=== PATIENT | female | born 1945 | race Hispanic/Latino ===

== ENCOUNTER 2017-08-11 10:12 | Outpatient (CLI) | payer MEDICARE ==
--- NOTE | 2017-08-12 13:23 | Vascular Lab Report ---
RENAL ARTERY DUPLEX EXAM: REASON FOR EXAM: Chronic renal failure. NOTE: Visualization is technically adequate. COMMENTS ON THE AORTA: The aorta is patent. Normal flow velocities are observed. No aneurysmal dilatation is noted. Mild atherosclerotic change is identified. The celiac artery is patent with normal flow velocity. The superior mesenteric artery is patent with normal flow velocity. COMMENTS ON THE RIGHT KIDNEY: The kidney measures 7.6 centimeters in greatest dimension. Kidney appears to be small and atretic The renal artery is patent. Maximum systolic velocity is 53 cm/sec. This finding is consistent with less than 60% diameter reduction. Renal aortic index is is not calculated due to low renal velocity. This is consistent with intrinsic parenchymal disease of the right kidney Overall findings are consistent with less than 60% diameter reduction in the renal artery. COMMENTS ON THE LEFT KIDNEY: The kidney measures 10.2 centimeters in greatest dimension. No no significant intraparenchymal abnormalities noted The renal artery is patent. Maximum systolic velocity is 92 cm/sec. This finding is consistent with less than 60% diameter reduction. Renal aortic index is one. This finding is consistent with less than 60% diameter reduction. Overall findings are consistent with less than 60% diameter reduction in the renal artery. IMPRESSION: RIGHT KIDNEY: Less than 60% diameter reduction in the renal artery. Significant intraparenchymal disease of the right kidney LEFT KIDNEY: Less than 60% diameter reduction in the renal artery.
== END 2017-08-11 10:13 | disposition home or self-care (01) ==
LOC: VAS 10:12
PROVIDERS: ATTEND Internal Medicine Nephrology
DX: N18.3 Chronic kidney disease, stage 3 (moderate) (principal)
CPT/HCPCS: 93975

== ENCOUNTER 2018-10-11 09:02 | Outpatient (CLI) | payer MEDICARE ==
--- NOTE | 2018-10-11 13:02 | Vascular Lab Report ---
FINAL REPORT EXAM: VL RENAL VASCULATURE HISTORY: KIDNEY DISEASE TECHNIQUE: Grayscale and color and spectral Doppler ultrasound imaging of the kidneys and abdominal aorta was performed. PRIORS: None. FINDINGS: The abdominal aorta is normal in caliber. Normal waveforms were seen throughout the abdominal aorta. Peak systolic velocity in cm/sec of the proximal abdominal aorta is 75, mid abdominal aorta is 84 and distal abdominal aorta is 77. The common iliac arteries are normal in caliber. Peak systolic velocit y of the right common iliac artery is 93.5 centimeters/second. Peak systolic velocity of the left com mon iliac artery is 105.6 centimeters/second. Normal waveforms were seen. Peak systolic velocity of t he celiac axis is 110.9 centimeters/second with normal waveforms. Peak systolic velocity of the proxi mal SMA is 99.8 centimeters/second with normal waveforms. Normal waveforms were seen throughout the renal arteries. Peak systolic velocity of the proximal left renal artery is 105.0 centimeters/second. Peak systolic velocity of the right proximal renal artery is 80 centimeters/second. Peak systolic velocity of the mid left renal artery is 96.2 centimeters/sec ond. The right mid renal artery was not well seen. Peak systolic velocity of the distal left renal ar linda is 122.0 centimeters/second. Peak systolic velocity of the right distal renal artery is 57 centi meters/second. The right renal to aortic ratio is 0.95. The left renal to aortic ratio is 1.45. The kidneys are diffusely increased in echogenicity with loss of the corticomedullary differentiation . No hydronephrosis is seen on either side. No renal cysts, masses or calcifications are seen. The ri ght kidney measures 6.2 centimeters in length. The left kidney measures 11.2 centimeters in length. IMPRESSION: 1. No evidence of renal artery stenosis. Note that the mid right renal artery was not visualized. 2. Echogenic kidneys can be seen in medical renal disease. Atrophic right kidney.
== END 2018-10-11 09:03 | disposition home or self-care (01) ==
LOC: VAS 09:02
PROVIDERS: ATTEND Internal Medicine Nephrology
DX: N18.3 Chronic kidney disease, stage 3 (moderate) (principal); N26.1 Atrophy of kidney (terminal)
CPT/HCPCS: 93975

== ENCOUNTER 2019-01-18 09:01 | Outpatient (CLI) | payer MEDICARE ==
--- NOTE | 2019-01-18 14:19 | Vascular Lab Report ---
PROCEDURE: VL RENAL VASCULATURE TECHNIQUE: Renal artery arterial duplex Doppler. Grayscale, color flow and spectral waveform images were obtained. HISTORY: ATHEROSCLEROSIS OF RENAL ARTERY, RENAL ARTERY DUPLEX COMPARISON: 10/11/2018 FINDINGS: There is no abdominal aortic aneurysm. Aortic flow velocities are up to 107 cm/s. There is no flow velocity elevation in the left renal artery. The left renal aortic ratio is normal, 1.0. Left intrarenal resistive index is mildly elevated at 0.77. Correlate with renal function. Left renal vein is patent. Right renal artery is not visualized. Left renal vein is patent. The right kidney is small measuring 6.6 cm length. There is patency and normal flow velocities in the celiac trunk and SMA. There is no abnormal mass or fluid collection seen. IMPRESSION: There is no evidence of left renal artery stenosis. Right renal artery is not visualized. There is pr ominent right renal atrophy as seen previously. This document is electronically signed by Anjali Chinchilla MD., Jan 18 2019 02:17:28 PM ET
== END 2019-01-18 09:02 | disposition home or self-care (01) ==
LOC: VAS 09:01
PROVIDERS: ATTEND Internal Medicine Nephrology
DX: I70.1 Atherosclerosis of renal artery (principal); N18.3 Chronic kidney disease, stage 3 (moderate)
CPT/HCPCS: 93975

== ENCOUNTER 2021-01-10 11:03 | Inpatient (IN) | payer MEDICARE ==
--- NOTE | 2021-01-10 11:10 | Emergency Department Report ---
Blank Doc - Documentation Documentation: 75-year-old female that was sent by Dr. Daniels (urologist) for possible hydronephro sis with kidney stone obstruction for possible procedure. 1- This initial assessment/diagnostic orders/clinical plan/ treatment(s) is/are subject to change based on pt's health status, clinical progression and re- assessment by fellow clinical providers in the ED. Further treatment and workup at subsequent clinical provers discretion. Patient/guardians urged not to elope from ED as their condition may be serious if not clinically assessed and managed. 2-lab 3-UA
[2021-01-10 11:40] LABS: Basophils # (Auto) 0.2 K/mm3 (0.0-0.1); Basophils % (Auto) 1.1 % (0.0-1.8); Eosinophils % (Auto) 0.2 % (0.0-4.3); Hematocrit 34.1 % (30.3-42.9); Hemoglobin 10.8 gm/dl (10.1-14.3); Lymphocytes # (Auto) 3.1 K/mm3 (1.2-5.4); Lymphocytes % (Auto) 16.9 % (13.4-35.0); Mean Corpuscular HGB Conc 32 % (30-34); Mean Corpuscular Volume 90 fl (79-97); Monocytes # (Auto) 0.9 K/mm3 (0.0-0.8); Monocytes % (Auto) 4.9 % (0.0-7.3); Platelet Count 414 K/mm3 (140-440); Red Blood Count 3.79 M/mm3 (3.65-5.03); Red Cell Distribution Width 13.2 % (13.2-15.2)
[2021-01-10 11:46] LABS: INR 1.2 (0.87-1.13)
[2021-01-10 11:47] LABS: Partial Thromboplastin Time 30.5 Sec. (24.2-36.6)
[2021-01-10] MEDS ORDERED: SODIUM CHLORIDE 0.9% 1000 ML 1,000 ML IV ONE (11:56)
[2021-01-10 11:58] LABS: Albumin 3.5 g/dL (3.9-5); Blood Urea Nitrogen 87 mg/dL (7-17); Calcium 8.7 mg/dL (8.4-10.2); Hemolysis Index 0
--- NOTE | 2021-01-10 12:02 | Emergency Department Report ---
ED General Adult HPI - General Chief complaint: Urogenital-Female Stated complaint: BLOCKED KIDNEY Time Seen by Provider: 01/10/21 11:04 Source: patient Mode of arrival: Ambulatory Limitations: No Limitations - History of Present Illness Initial comments: This is a 75-year-old female who is somewhat vague about her medical history. She was sent by her urologist for evaluation are he decreased urine output I understand. I am also thinking that she may have been told that if she has a kidney stone/hydronephrosis that she may need a stent. She tells me that she has had an ultrasound in the office that did show a kidney stone. She thinks it was on the left but does not know the size. She was sent by her urologist who will be called for further information. He requested that she get a CT of her abdomen and pelvis for further work-up. Patient denies that she has back pain or hematuria at this time. She does not refer any recent fever or symptoms beyond the decreased urine output. She states that she has one nonfunctional kidney and the other kidney is at the The patient's last study here was a renal ultrasound in 2019. It looks like she had several in the past as well. The last study showed no evidence of kidney stone nor renal artery stenosis. -: Gradual Associated Symptoms: denies other symptoms (Decreased urine output as above) - Related Data Allergies Allergy/AdvReac Type Severity Reaction Status Date / Time Penicillins Allergy Anaphylaxis Verified 01/10/21 11:04 Sulfa (Sulfonamide Allergy Anaphylaxis Verified 01/10/21 11:04 Antibiotics) ED Review of Systems ROS: Stated complaint: BLOCKED KIDNEY Other details as noted in HPI Constitutional: denies: chills, fever Eyes: denies: eye pain, vision change ENT: denies: ear pain, throat pain Respiratory: denies: cough, shortness of breath Cardiovascular: denies: chest pain, palpitations Endocrine: no symptoms reported Gastrointestinal: denies: abdominal pain, nausea, diarrhea Genitourinary: as per HPI. denies: urgency, dysuria Musculoskeletal: denies: back pain, arthralgia Skin: denies: rash, lesions Neurological: denies: headache, weakness, paresthesias Psychiatric: denies: anxiety, depression Hematological/Lymphatic: denies: easy bleeding, easy bruising ED Past Medical Hx - Past Medical History Hx Diabetes: Yes Additional medical history: 1 KIDNEY - KIDNEY DISEASE/ MITRAL VALVE / BUNDLE BLOCK - Surgical History Additional Surgical History: KIDNEY STONE/ HYSTO - Social History Smoking Status: Never Smoker Substance Use Type: None ED Physical Exam - General Limitations: No Limitations General appearance: alert, in no apparent distress - Head Head exam: Present: atraumatic, normocephalic - Eye Eye exam: Present: normal appearance. Absent: scleral icterus - ENT ENT exam: Present: mucous membranes moist - Neck Neck exam: Present: normal inspection - Respiratory Respiratory exam: Present: normal lung sounds bilaterally. Absent: respiratory distress - Cardiovascular Cardiovascular Exam: Present: regular rate, normal rhythm. Absent: systolic murmur, diastolic murmur, rubs, gallop - GI/Abdominal GI/Abdominal exam: Present: soft, normal bowel sounds. Absent: distended, tenderness, guarding, rebound - Extremities Exam Extremities exam: Present: normal inspection - Back Exam Back exam: Present: normal inspection - Neurological Exam Neurological exam: Present: alert, oriented X3, CN II-XII intact. Absent: motor sensory deficit - Psychiatric Psychiatric exam: Present: normal affect, normal mood - Skin Skin exam: Present: warm, dry, intact, normal color. Absent: rash ED Course Vital Signs 01/10/21 11:11 Temperature 97.5 F L Pulse Rate 63 Respiratory 18 Rate Blood Pressure 136/52 O2 Sat by Pulse 97 Oximetry - Reevaluation(s) Reevaluation #1: Patient stated that she had an uncomplicated rash associated with penicillin in the distant past. I think the patient's drug of choice should be ceftriaxone. We will monitor her closely. The risk of significant cross-reactivity would be exceedingly small in this setting. 01/10/21 12:46 Reevaluation #2: Patient has been seen by her urologist, Dr. Daniels. He states the patient needs a percutaneous nephrostomy tube. He states he called Dr. Bray but has not yet discussed. I have consulted Dr. Bray. 01/10/21 12:53 ED Medical Decision Making - Lab Data Result diagrams: 01/10/21 11:09 01/10/21 11:20 Laboratory Results - last 24 hr 01/10/21 01/10/21 01/10/21 11:09 11:20 11:25 WBC 18.4 H RBC 3.79 Hgb 10.8 Hct 34.1 MCV 90 MCH 29 MCHC 32 RDW 13.2 Plt Count 414 Lymph % (Auto) 16.9 [place] % (Auto) 4.9 Eos % (Auto) 0.2 Baso % (Auto) 1.1 Lymph # (Auto) 3.1 [place] # (Auto) 0.9 H Eos # (Auto) 0.0 Baso # (Auto) 0.2 H Seg Neutrophils % 76.9 H Seg Neutrophils # 14.1 H PT 15.0 H INR 1.20 H APTT 30.5 Sodium 132 L Potassium 4.2 Chloride 91.7 L Carbon Dioxide 16 L Anion Gap 29 BUN 87 H Glucose 162 H Calcium 8.7 Total Bilirubin 0.50 AST 12 Alkaline Phosphatase 130 H Total Protein 7.4 Albumin 3.5 L Albumin/Globulin Ratio 0.9 Laboratory Results - last 24 hr 01/10/21 01/10/21 01/10/21 11:09 11:20 11:25 WBC 18.4 H RBC 3.79 Hgb 10.8 Hct 34.1 MCV 90 MCH 29 MCHC 32 RDW 13.2 Plt Count 414 Lymph % (Auto) 16.9 [place] % (Auto) 4.9 Eos % (Auto) 0.2 Baso % (Auto) 1.1 Lymph # (Auto) 3.1 [place] # (Auto) 0.9 H Eos # (Auto) 0.0 Baso # (Auto) 0.2 H Seg Neutrophils % 76.9 H Seg Neutrophils # 14.1 H PT 15.0 H INR 1.20 H APTT 30.5 Sodium 132 L Potassium 4.2 Chloride 91.7 L Carbon Dioxide 16 L Anion Gap 29 BUN 87 H Creatinine 13.1 H Estimated GFR 3 BUN/Creatinine Ratio 7 Glucose 162 H Calcium 8.7 Total Bilirubin 0.50 AST 12 ALT < 5 L Alkaline Phosphatase 130 H Total Protein 7.4 Albumin 3.5 L Albumin/Globulin Ratio 0.9 Blood Type 01/10/21 11:44 WBC RBC Hgb Hct MCV MCH MCHC RDW Plt Count Lymph % (Auto) [place] % (Auto) Eos % (Auto) Baso % (Auto) Lymph # (Auto) [place] # (Auto) Eos # (Auto) Baso # (Auto) Seg Neutrophils % Seg Neutrophils # PT INR APTT Sodium Potassium Chloride Carbon Dioxide Anion Gap BUN Creatinine Estimated GFR BUN/Creatinine Ratio Glucose Calcium Total Bilirubin AST ALT Alkaline Phosphatase Total Protein Albumin Albumin/Globulin Ratio Blood Type O NEGATIVE - Radiology Data Radiology results: report reviewed, image reviewed IMPRESSION: 1. 7 mm obstructing calculus within the proximal left ureter at the ureteropelvic junction. This produces moderate to severe left-sided hydronephrosis. 2. Nonobstructing 6 mm calyceal stone within the left kidney. 3. Right renal atrophy. Critical care attestation.: If time is entered above; I have spent that time in minutes in the direct care of this critically ill patient, excluding procedure time. ED Disposition Clinical Impression: Hydronephrosis of left kidney, Renal atrophy, right, Kidney stones Acute on chronic renal failure Qualifiers: Acute renal failure type: unspecified Chronic kidney disease stage: stage 5, not on chronic dialysis Qualified Code(s): N17.9 - Acute kidney failure, unspecified; N18.5 - Chronic kidney disease, stage 5 Leukocytosis Qualifiers: Leukocytosis type: unspecified Qualified Code(s): D72.829 - Elevated white blood cell count, unspecified Disposition: OP ADMIT IP TO THIS HOSP Is pt being admited?: Yes Does the pt Need Aspirin: No Condition: Stable Referrals: PRIMARY CARE, [Primary Care Provider] - 3-5 Days
--- NOTE | 2021-01-10 12:07 | XRay Report ---
CHEST 1 VIEW 01/10/2021 11:42 AM INDICATION / CLINICAL INFORMATION: hypertension. COMPARISON: None available. FINDINGS: SUPPORT DEVICES: None. HEART / MEDIASTINUM: No significant abnormality. LUNGS / PLEURA: No significant pulmonary or pleural abnormality. No pneumothorax. ADDITIONAL FINDINGS: No significant additional findings. IMPRESSION: 1. No acute findings. Signer Name: Regis Urbano MD Signed: 01/10/2021 12:03 PM Workstation Name: [id number]
[2021-01-10] MEDS ORDERED: cefTRIAXone/NS 1 GM/50 ML 1 GM/50 ML BAG IV ONE (12:24)
[2021-01-10 12:27] LABS: Alanine Aminotransferase < 5 units/L (7-56); BUN/Creatinine Ratio 7
--- NOTE | 2021-01-10 12:38 | Cat Scan Report ---
CT ABDOMEN AND PELVIS WITHOUT CONTRAST INDICATION / CLINICAL INFORMATION: Kidney stone, decreased urine output for 2 days. TECHNIQUE: Axial CT images were obtained through the abdomen and pelvis without IV contrast. All CT scans at [facility] location are performed using CT dose reduction for ALARA by means of automated exposure control. COMPARISON: Renal ultrasound dated 01/18/2019. FINDINGS: LOWER CHEST: No significant abnormality. LIVER: No significant abnormality. GALLBLADDER: No significant abnormality. PANCREAS: No significant abnormality. SPLEEN: No significant abnormality. ADRENALS: No significant abnormality. KIDNEYS / URETERS: There is a 7 mm obstructing calculus within the proximal left ureter at the ureter opelvic junction. This produces moderate to severe upstream hydronephrosis. There is also a 6 mm nono bstructing calyceal stone within the mid to lower left kidney. Right renal atrophy is noted. URINARY BLADDER: No significant abnormality. REPRODUCTIVE ORGANS: No significant abnormality. STOMACH / SMALL BOWEL: No significant abnormality. COLON: No significant abnormality. APPENDIX: No significant abnormality. PERITONEUM: No free fluid. No free air. No fluid collection. LYMPH NODES: No significant adenopathy. AORTA / ARTERIES: Mild atherosclerotic calcification without acute abnormality. IVC / VEINS: No significant abnormality. SKELETAL SYSTEM: No significant abnormality. ADDITIONAL FINDINGS: None. IMPRESSION: 1. 7 mm obstructing calculus within the proximal left ureter at the ureteropelvic junction. This prod uces moderate to severe left-sided hydronephrosis. 2. Nonobstructing 6 mm calyceal stone within the left kidney. 3. Right renal atrophy. Signer Name: Moi Nobles MD Signed: 01/10/2021 12:34 PM Workstation Name: [id number]
--- NOTE | 2021-01-10 13:12 | Progress Note ---
Assessment and Plan was not allowed to do tghis yesterday now [facility] safest is perc spoke to pt her daughter and rosy abarca and anabel rec perc needs f/u stoen litho etc pending recovery dictated Subjective Date of service: 01/10/21 Principal diagnosis: left hydro sepsis renal failure Objective - Constitutional Vitals: Vital Signs - 12hr 01/10/21 11:11 Temperature 97.5 F L Pulse Rate 63 Respiratory 18 Rate Blood Pressure 136/52 O2 Sat by Pulse 97 Oximetry - Labs CBC & Chem 7: 01/10/21 11:09 01/10/21 11:20 Labs: Abnormal lab results 01/10/21 01/10/21 01/10/21 Range/Units 11:09 11:20 11:25 WBC 18.4 H (4.5-11.0) K/mm3 [place] # (Auto) 0.9 H (0.0-0.8) K/mm3 Baso # (Auto) 0.2 H (0.0-0.1) K/mm3 Seg Neutrophils % 76.9 H (40.0-70.0) % Seg Neutrophils # 14.1 H (1.8-7.7) K/mm3 PT 15.0 H (12.2-14.9) Sec. INR 1.20 H (0.87-1.13) Sodium 132 L (137-145) mmol/L Chloride 91.7 L (98-107) mmol/L Carbon Dioxide 16 L (22-30) mmol/L BUN 87 H (7-17) mg/dL Creatinine 13.1 H (0.6-1.2) mg/dL Glucose 162 H (65-100) mg/dL ALT < 5 L (7-56) units/L Alkaline Phosphatase 130 H (35-129) units/L Albumin 3.5 L (3.9-5) g/dL Medications & Allergies - Medications Allergies/Adverse Reactions: Allergies Penicillins Allergy (Verified 01/10/21 11:04) Anaphylaxis Sulfa (Sulfonamide Antibiotics) Allergy (Verified 01/10/21 11:04) Anaphylaxis Active Medications: Generic Name Dose Route Start Last Admin Trade Name Freq PRN Reason Stop Dose Admin Sodium Chloride 1,000 mls @ 125 mls/hr 01/10/21 11:56 Nacl 0.9% 1000 Ml IV 01/10/21 19:55 ONCE ONE
--- NOTE | 2021-01-10 13:18 | Event Note ---
Date: 01/10/21 75 year old female with sole functioning hydronephrotic left kidney who presents with sepsis, and ARF. No anticoagulants. NPO except sips of water with meds. Plan for left nephrostomy tube later today.
[2021-01-10] MEDS ORDERED: HYDROmorphone 1 MG/1 ML INJ IV PRN ×3 (13:20→22:05)
[2021-01-10] MEDS ORDERED: ONDANSETRON 4 MG/2 ML INJ IV PRN ×3 (13:20→22:23)
[2021-01-10 14:46] LABS: Bacteria,Urine 3+ /HPF (Negative); Bilirubin,Urine NEG (Negative); Blood,Urine MOD (Negative); Color,Urine Yellow (Yellow); Mucus,Urine FEW /HPF; Urobilinogen,Urine < 2.0 mg/dL (<2.0)
[2021-01-10] MEDS ORDERED: SODIUM CHLORIDE IRRI 500 ML 500 ML IR ONE (14:46)
[2021-01-10] MEDS ORDERED: SODIUM CHLORIDE 0.9% 500 ML 500 ML ONE (14:47)
--- NOTE | 2021-01-10 15:34 | Event Note ---
Appreciate nephrology consult, official consult to follow. In short, this is a 75 year old woman who presents with severe VADIM likely from obstruction. Appreciate urology and IR input, planning for nephrostomy tube placement. Last creatinine in outpatient CKD clinic 2.0 in 11/3020. If not improving, will need to start renal replacement therapy. Lytes, vital signs WNL and no indication for immediate dialysis. Monitor urine output closely.
--- NOTE | 2021-01-10 16:15 | Consultation ---
History of Present Illness - Reason for Consult Consult date: 01/10/21 Hydronephrosis Requesting physician: BESS PIRES - History of Present Illness 75-year-old female with past medical history of solitary kidney and diabetes with ureteral calculi noted 1 week ago in the left kidney with pain who now presents with acute renal failure, hydronephrosis, and leukocytosis. She was sent by her urologist for evaluation for decreased urine output and treatment of the ureteral calculi. Patient denies that she has back pain or hematuria at this time. She states that she has one nonfunctional kidney and the other kidney is the solitary kidney. The patient's last study here was a renal ultrasound in 2019. It looks like she had several in the past as well. The last study showed no evidence of kidney stone nor renal artery stenosis. Vascular and interventional consulted for possible nephrostomy tube. Patient has had left flank pain for 1 week which has been slowly improving, but during that time, her mentation has been slowly declining and she has been developing chills without fever. She was sent to the emergency room and found to be in acute renal failure with hydronephrosis and the beginnings of sepsis with leukocytosis. Urology was contacted who requested nephrostomy tube placement. ROS: Other details as noted in HPI Constitutional: denies: fever Eyes: denies: eye pain, vision change ENT: denies: ear pain, throat pain Respiratory: denies: cough, shortness of breath Cardiovascular: denies: chest pain, palpitations Endocrine: no symptoms reported Gastrointestinal: denies: abdominal pain, nausea, diarrhea Genitourinary: denies: urgency, dysuria Musculoskeletal: denies: back pain, arthralgia Skin: denies: rash, lesions Neurological: denies: headache, weakness, paresthesias Psychiatric: denies: anxiety, depression Hematological/Lymphatic: denies: easy bleeding, easy bruising Past Medical History Hx Diabetes: Yes Additional medical history: 1 KIDNEY - KIDNEY DISEASE/ MITRAL VALVE / BUNDLE BLOCK Surgical History Additional Surgical History: KIDNEY STONE/ HYSTO Social History Smoking Status: Never Smoker Substance Use Type: None Medications and Allergies Allergies Allergy/AdvReac Type Severity Reaction Status Date / Time Penicillins Allergy Anaphylaxis Verified 01/10/21 11:04 Sulfa (Sulfonamide Allergy Anaphylaxis Verified 01/10/21 11:04 Antibiotics) Active Meds: Active Medications Hydromorphone HCl (Hydromorphone 1 Mg/1 Ml Inj) 0.5 mg IV Q10MIN PRN PRN Reason: Pain , Severe (7-10) Stop: 01/11/21 13:19 Hydromorphone HCl (Hydromorphone 1 Mg/1 Ml Inj) 0.25 mg IV Q10MIN PRN PRN Reason: Pain, Moderate (4-6) Stop: 01/11/21 13:19 Sodium Chloride (Nacl 0.9% 1000 Ml) 1,000 mls @ 125 mls/hr IV ONCE ONE Stop: 01/10/21 19:55 Last Admin: 01/10/21 12:50 Dose: 125 mls/hr Documented by: Ondansetron HCl (Ondansetron 4 Mg/2 Ml Inj) 4 mg IV ONCE PRN PRN Reason: Nausea And Vomiting Exam - Constitutional Vitals: Temp Pulse Resp BP Pulse Ox 97.5 F L 63 18 136/52 97 01/10/21 11:11 01/10/21 11:11 01/10/21 11:11 01/10/21 11:11 01/10/21 11:11 General appearance: Present: mild distress (Left flank discomfort upon palpation) - EENT Eyes: Present: EOM intact ENT: hearing intact - Neck Neck: Present: supple - Respiratory Respiratory effort: normal - Abdominal General gastrointestinal: Present: tender (Left flank discomfort) - Psychiatric Psychiatric: appropriate mood/affect, cooperative Results - Labs CBC & Chem 7: 01/10/21 11:09 01/10/21 11:20 Labs: Abnormal lab results 01/10/21 01/10/21 01/10/21 Range/Units 11:09 11:20 11:25 WBC 18.4 H (4.5-11.0) K/mm3 [place] # (Auto) 0.9 H (0.0-0.8) K/mm3 Baso # (Auto) 0.2 H (0.0-0.1) K/mm3 Seg Neutrophils % 76.9 H (40.0-70.0) % Seg Neutrophils # 14.1 H (1.8-7.7) K/mm3 PT 15.0 H (12.2-14.9) Sec. INR 1.20 H (0.87-1.13) Sodium 132 L (137-145) mmol/L Chloride 91.7 L (98-107) mmol/L Carbon Dioxide 16 L (22-30) mmol/L BUN 87 H (7-17) mg/dL Creatinine 13.1 H (0.6-1.2) mg/dL Glucose 162 H (65-100) mg/dL ALT < 5 L (7-56) units/L Alkaline Phosphatase 130 H (35-129) units/L Albumin 3.5 L (3.9-5) g/dL Urine WBC (Auto) (0.0-6.0) /HPF U Epithel Cells (Auto) (0-13.0) /HPF /02/25 Range/Units 14:24 WBC (4.5-11.0) K/mm3 [place] # (Auto) (0.0-0.8) K/mm3 Baso # (Auto) (0.0-0.1) K/mm3 Seg Neutrophils % (40.0-70.0) % Seg Neutrophils # (1.8-7.7) K/mm3 PT (12.2-14.9) Sec. INR (0.87-1.13) Sodium (137-145) mmol/L Chloride (98-107) mmol/L Carbon Dioxide (22-30) mmol/L BUN (7-17) mg/dL Creatinine (0.6-1.2) mg/dL Glucose (65-100) mg/dL ALT (7-56) units/L Alkaline Phosphatase (35-129) units/L Albumin (3.9-5) g/dL Urine WBC (Auto) 42.0 H (0.0-6.0) /HPF U Epithel Cells (Auto) 64.0 H (0-13.0) /HPF - Imaging and Cardiology CT scan - abdomen: report reviewed, image reviewed Assessment and Plan 75-year-old female with solitary left kidney with chronic kidney disease and left ureteral calculi causing obstructive hydronephrosis. Patient has a beginnings of sepsis with leukocytosis and acute renal failure. Urology requested nephrostomy tube placement rather than stent. Given acute renal failure and the beginnings of sepsis, nephrostomy tube is reasonable. Discussed risks, benefits, and alternatives of nephrostomy tube placement with the patient, her daughter, and her other daughter over the phone. Patient's family agreed with nephrostomy tube placement. Patient has received antibiotics prior to procedure.
[2021-01-10] MEDS ORDERED: SODIUM CHLORIDE 0.9% 1000 ML 1,000 ML ONE (16:33)
[2021-01-10] MEDS ORDERED: MEPERIDINE 25 MG/1 ML INJ ONE (16:34)
[2021-01-10] MEDS: fentaNYL 100 MCG/2 ML INJ ONE ×2 (16:34→16:45)
[2021-01-10] MEDS: MIDAZOLAM 2 MG/2 ML INJ ONE ×2 (16:34→16:45)
[2021-01-10] MEDS: LIDOCAINE 1%/EPINEPHRINE 1:100,000 VIAL (20 ML) INFILTRATI ONE ×2 (16:37→16:41)
--- NOTE | 2021-01-10 17:28 | Operative Report ---
Operative Report Operative Report: EXAM: 1. Ultrasound and fluoroscopic guided access of the lower posterior calyx of the left kidney 2. Diagnostic injection of the left kidney through the access needle 3. Nephrostogram of the left kidney 4. Percutaneous nephrostomy tube placement of the left kidney DATE: 01/10/2021 EXECUTIVE DIRECTOR OF NURSING: CLAU LARIOS MD INDICATION: Obstructive hydronephrosis with acute renal failure and sepsis MEDICATIONS: Please see nursing report for full details. DEVICES: 8 Sami nephrostomy tube CONTRAST: Please see Director Of Corporate Real Estate note for full details PROCEDURE: The risks, benefits, and alternatives were discussed with the patient; written informed consent was obtained. The patient's back was prepped and draped in a sterile fashion. The patient's puncture site was anesthetized with lidocaine. Under direct ultrasound guidance, the left lower pole posterior calyx was accessed with a 21-gauge needle. Urine was aspirated. Contrast was injected demonstrating mild to moderate left-sided hydronephrosis with obstructing proximal ureteral calculi. 0.018 inch wire was passed into the collecting system. Needle was exchanged for a 6 Sami Accu stick system. 6 Sami Accustick system was advanced over the wire and passed into the collecting system. Wire, inner dilator and cannula were removed. Contrast was injected confirming position within the collecting system. Nephrostogram was performed demonstrating moderate left-sided hydronephrosis with obstructing proximal ureteropelvic calculi. Angled catheter and Glidewire were then advanced into the left ureter past the calculi. Contrast was injected demonstrating flow to the bladder. 0.035 inch Amplatz wire was advanced through the angled catheter and the transitional dilator of the AccuStick system and the angled catheter was removed. Serial dilatation was performed. 8 Sami nephrostomy tube was advanced over the wire. Wire was removed. [place] loop was performed in the renal pelvis. Brown[place] loop formation moved the calculi from its position now resulting in some passage of urine through the ureter into the bladder. Contrast was injected into the nephrostomy tube confirming position within the collecting system. Contrast was aspirated. The nephrostomy tube was sutured in place with Ethilon. Sterile dressing applied. Patient tolerated the procedure well. She was transferred to the floor in stable condition. FINDINGS: Please see procedure note above. IMPRESSION: 1. Successful nephrostogram of the left kidney demonstrating mild to moderate hydronephrosis and obstructing ureteropelvic calculi. After placement of the nephrostomy tube, the ureteropelvic calculi was partially removed and there is now flow of urine into the ureter and bladder. 2. Percutaneous nephrostomy tube placement in the lower posterior calyx of the left kidney.
--- NOTE | 2021-01-10 22:09 | Consultation ---
DATE OF CONSULTATION: 01/10/2021 HISTORY OF PRESENT ILLNESS: The patient is a 75-year-old woman who I met yesterday for the first time with mild discomfort in left flank. She told me she only had one functioning kidney. We ultrasounded her and she had mild to moderate left hydronephrosis. The right kidney was severely atrophic. I was quite concerned because she is diabetic, so I tried to get her approved for a stent yesterday. She was not febrile. She had no chills. She waited for hours, did not get a final approval, that was acceptable by the hospital, so she went home and was back here at 8:30 this morning. We thought that there would be approval, but then they said the process had to be redone all over again. The family was quite upset and tearful and so I was in touch with administration, was told to send her to the emergency room. Now, she is still afebrile, but she has a white count of 18 and a creatinine of 13. She needs a percutaneous nephrostomy to be sure she has drainage. She is in renal failure. She does not feel well. She needs to be drained and then we deal with the stone at a later date. PAST MEDICAL HISTORY: As mentioned above, she has a history of renal insufficiency and diabetes. PAST SURGICAL HISTORY: No renal surgery. REVIEW OF SYSTEMS: No severe pain. No fevers or chills. PHYSICAL EXAMINATION: GENERAL: She is awake. She is in no distress. GASTROINTESTINAL: Abdomen soft, nondistended, mildly overweight. CHEST: Clear. HEART: Regular rhythm. ASSESSMENT AND PLAN: Pending urosepsis, progressive renal insufficiency, obstructed basically solitary functioning kidney. Needs a percutaneous nephrostomy stat and we will deal with the stone at a later date. Discussed this with her and her daughter and the other doctors involved. TID: [id number] RECEIPT: [id number] DANILO/JAVIER
[2021-01-10] MEDS ORDERED: ACETAMINOPHEN 325 MG TAB PO PRN (22:23)
[2021-01-10] MEDS ORDERED: oxyCODONE /ACETAMINOPHEN 5-325MG TAB PO PRN (22:28)
[2021-01-10] MEDS ORDERED: SODIUM CHLORIDE 0.9% 1000 ML 1,000 ML IV SCH (22:30)
[2021-01-10] MEDS ORDERED: FAMOTIDINE 20 MG/2 ML INJ IV SCH (23:00)
[2021-01-11 05:08] LABS: Basophils % (Auto) 0.4 % (0.0-1.8); Eosinophils # (Auto) 0.1 K/mm3 (0.0-0.4); Hematocrit 29.6 % (30.3-42.9); Hemoglobin 9.6 gm/dl (10.1-14.3); Lymphocytes # (Auto) 1.2 K/mm3 (1.2-5.4); Lymphocytes % (Auto) 13.5 % (13.4-35.0); Mean Corpuscular HGB Conc 33 % (30-34); Mean Corpuscular Volume 88 fl (79-97); Monocytes # (Auto) 0.5 K/mm3 (0.0-0.8); Monocytes % (Auto) 6.3 % (0.0-7.3); Platelet Count 272 K/mm3 (140-440); Red Blood Count 3.35 M/mm3 (3.65-5.03); Red Cell Distribution Width 13.3 % (13.2-15.2)
[2021-01-11 05:30] LABS: Alanine Aminotransferase < 5 units/L (7-56); Albumin 2.7 g/dL (3.9-5); BUN/Creatinine Ratio 7; Blood Urea Nitrogen 81 mg/dL (7-17); Calcium 7.6 mg/dL (8.4-10.2); Hemolysis Index 0
--- NOTE | 2021-01-11 06:55 | History and Physical Report ---
History of Present Illness Date of examination: 01/10/21 Date of admission: 01/10/21 13:05 Chief complaint: Left lower quadrant sharp intermittent pain for 3 days Decreased urinary output History of present illness: 75-year-old female sent by her urologist for decreased urine output and left lower quadrant severe intermittent pain. Patient apparently has a left re nal/ureteral stone with hydronephrosis. Patient had ultrasound in the urology office and was told that she has a kidney stone and hydronephrosis. Patient is sent to the emergency room for evaluation of her left kidney stone and hydronephrosis. Patient has been having severe intermittent pain in the left lower quadrant for the last 3 days. Nausea present. No vomiting. No fever or chills. No hematuria. Decreased urine output. In the emergency room patient was found to have a creatinine of 13. Patient being taken to the [facility] for possible nephrostomy on the left side - Past Medical History --Diabetes: Yes Additional medical history: 1 KIDNEY - KIDNEY DISEASE/ MITRAL VALVE / BUNDLE BLOCK - Surgical History Additional Surgical History: KIDNEY STONE/ HYSTO - Social History Smoking Status: Never Smoker Substance Use Type: None Review of Systems ROS: Stated complaint: BLOCKED KIDNEY Other details as noted in HPI Constitutional: denies: chills, fever Eyes: denies: eye pain, vision change ENT: denies: ear pain, throat pain Respiratory: denies: cough, shortness of breath Cardiovascular: denies: chest pain, palpitations Endocrine: no symptoms reported Gastrointestinal: denies: abdominal pain, nausea, diarrhea Genitourinary: as per HPI. denies: urgency, dysuria Musculoskeletal: denies: back pain, arthralgia Skin: denies: rash, lesions Neurological: denies: headache, weakness, paresthesias Psychiatric: denies: anxiety, depression Hematological/Lymphatic: denies: easy bleeding, easy bruising Medications and Allergies Allergies Allergy/AdvReac Type Severity Reaction Status Date / Time Penicillins Allergy Anaphylaxis Verified 01/10/21 11:04 Sulfa (Sulfonamide Allergy Anaphylaxis Verified 01/10/21 11:04 Antibiotics) Active Meds: Active Medications Acetaminophen (Acetaminophen 325 Mg Tab) 650 mg PO Q4H PRN PRN Reason: Pain MILD(1-3)/Fever >100.5/RICH Famotidine (Famotidine 20 Mg/2 Ml Inj) 10 mg IV BID BELA Last Admin: 01/10/21 22:51 Dose: 10 mg Documented by: Hydromorphone HCl (Hydromorphone 1 Mg/1 Ml Inj) 0.5 mg IV Q3H PRN PRN Reason: Pain , Severe (7-10) Sodium Chloride (Nacl 0.9% 1000 Ml) 1,000 mls @ 75 mls/hr IV DIRECT BELA Ceftriaxone Sodium (Rocephin/Ns 1 Gm/50 Ml) 1 gm in 50 mls @ 100 mls/hr IV Q24H BELA; Protocol Ondansetron HCl (Ondansetron 4 Mg/2 Ml Inj) 4 mg IV Q3H PRN PRN Reason: Nausea And Vomiting Oxycodone/Acetaminophen (Oxycodone /Acetaminophen 5-325mg Tab) 1 tab PO Q6H PRN PRN Reason: Pain, Moderate (4-6) Sodium Chloride (Sodium Chloride 0.9% 10 Ml Flush Syringe) 10 ml IV BID [facility] Last Admin: 01/10/21 22:52 Dose: 10 ml Documented by: Sodium Chloride (Sodium Chloride 0.9% 10 Ml Flush Syringe) 10 ml IV PRN PRN PRN Reason: LINE FLUSH Exam - Constitutional Vitals: Temp Pulse Resp BP Pulse Ox 98.9 F 68 18 126/53 93 01/11/21 04:12 01/11/21 04:12 01/11/21 04:12 01/11/21 04:12 01/11/21 04:12 General appearance: Present: severe distress, well-nourished - EENT Eyes: Present: PERRL ENT: hearing intact, clear oral mucosa - Neck Neck: Present: supple, normal ROM - Respiratory Respiratory effort: normal Respiratory: bilateral: CTA - Cardiovascular Heart rate: 78 Rhythm: regular Heart Sounds: Present: S1 & S2. Absent: rub, click - Extremities Extremities: pulses symmetrical, No edema Peripheral Pulses: within normal limits - Abdominal General gastrointestinal: Present: soft, non-tender, non-distended, normal bowel sounds Female genitourinary: Present: normal - Integumentary Integumentary: Present: clear, warm, dry - Musculoskeletal Musculoskeletal: gait normal, strength equal bilaterally - Psychiatric Psychiatric: appropriate mood/affect, intact judgment & insight - Neurologic Neurologic: CNII-XII intact, moves all extremities Results - Labs CBC & Chem 7: 01/11/21 04:42 01/11/21 04:42 Labs: Laboratory Last Values WBC 8.5 K/mm3 (4.5-11.0) 01/11/21 04:42 RBC 3.35 M/mm3 (3.65-5.03) L 01/11/21 04:42 Hgb 9.6 gm/dl (10.1-14.3) L 01/11/21 04:42 Hct 29.6 % (30.3-42.9) L 01/11/21 04:42 MCV 88 fl (79-97) 01/11/21 04:42 MCH 29 pg (28-32) 01/11/21 04:42 MCHC 33 % (30-34) 01/11/21 04:42 RDW 13.3 % (13.2-15.2) 01/11/21 04:42 Plt Count 272 K/mm3 (140-440) 01/11/21 04:42 Lymph % (Auto) 13.5 % (13.4-35.0) 01/11/21 04:42 [place] % (Auto) 6.3 % (0.0-7.3) 01/11/21 04:42 Eos % (Auto) 1.0 % (0.0-4.3) 01/11/21 04:42 Baso % (Auto) 0.4 % (0.0-1.8) 01/11/21 04:42 Lymph # (Auto) 1.2 K/mm3 (1.2-5.4) 01/11/21 04:42 [place] # (Auto) 0.5 K/mm3 (0.0-0.8) 01/11/21 04:42 Eos # (Auto) 0.1 K/mm3 (0.0-0.4) 01/11/21 04:42 Baso # (Auto) 0.0 K/mm3 (0.0-0.1) 01/11/21 04:42 Seg Neutrophils % 78.8 % (40.0-70.0) H 01/11/21 04:42 Seg Neutrophils # 6.7 K/mm3 (1.8-7.7) 01/11/21 04:42 PT 15.0 Sec. (12.2-14.9) H 01/10/21 11:25 INR 1.20 (0.87-1.13) H 01/10/21 11:25 APTT 30.5 Sec. (24.2-36.6) 01/10/21 11:25 Sodium 131 mmol/L (137-145) L 01/11/21 04:42 Potassium 4.1 mmol/L (3.6-5.0) 01/11/21 04:42 Chloride 97.3 mmol/L (98-107) L 01/11/21 04:42 Carbon Dioxide 15 mmol/L (22-30) L 01/11/21 04:42 Anion Gap 23 mmol/L 01/11/21 04:42 BUN 81 mg/dL (7-17) H 01/11/21 04:42 Creatinine 11.7 mg/dL (0.6-1.2) H 01/11/21 04:42 Estimated GFR 3 ml/min 01/11/21 04:42 BUN/Creatinine Ratio 7 % 01/11/21 04:42 Glucose 165 mg/dL (65-100) H 01/11/21 04:42 Hemoglobin A1c 5.9 % (4-6) 01/11/21 04:42 Lactic Acid 1.00 mmol/L (0.7-2.0) 01/10/21 12:48 Calcium 7.6 mg/dL (8.4-10.2) L 01/11/21 04:42 Total Bilirubin 0.20 mg/dL (0.1-1.2) 01/11/21 04:42 AST 9 units/L (5-40) 01/11/21 04:42 ALT < 5 units/L (7-56) L 01/11/21 04:42 Alkaline Phosphatase 115 units/L (35-129) 01/11/21 04:42 Total Protein 5.5 g/dL (6.3-8.2) L D 01/11/21 04:42 Albumin 2.7 g/dL (3.9-5) L 01/11/21 04:42 Albumin/Globulin Ratio 1.0 % 01/11/21 04:42 Urine Color Yellow (Yellow) 01/10/21 14:24 Urine Turbidity Cloudy (Clear) 01/10/21 14:24 Urine pH 5.0 (5.0-7.0) 01/10/21 14:24 Ur Specific [place] 1.008 (1.003-1.030) 01/10/21 14:24 Urine Protein 30 mg/dl mg/dL (Negative) 01/10/21 14:24 Urine Glucose (UA) Neg mg/dL (Negative) 01/10/21 14:24 Urine Ketones Neg mg/dL (Negative) 01/10/21 14:24 Urine Blood Mod (Negative) 01/10/21 14:24 Urine Nitrite Neg (Negative) 01/10/21 14:24 Urine Bilirubin Neg (Negative) 01/10/21 14:24 Urine Urobilinogen < 2.0 mg/dL (<2.0) 01/10/21 14:24 Ur Leukocyte Esterase Sm (Negative) 01/10/21 14:24 Urine WBC (Auto) 42.0 /HPF (0.0-6.0) H 01/10/21 14:24 Urine RBC (Auto) 6.0 /HPF (0.0-6.0) 01/10/21 14:24 U Epithel Cells (Auto) 64.0 /HPF (0-13.0) H 01/10/21 14:24 Urine Bacteria (Auto) 3+ /HPF (Negative) 01/10/21 14:24 Urine Mucus Few /HPF 01/10/21 14:24 Urine Yeast (Budding) 2+ /HPF 01/10/21 14:24 Blood Type O NEGATIVE 01/10/21 11:44 Antibody Screen Negative 01/10/21 11:44 Short CBC 01/10/21 01/11/21 Range/Units 11:09 04:42 WBC 18.4 H 8.5 (4.5-11.0) K/mm3 Hgb 10.8 9.6 L (10.1-14.3) gm/dl Hct 34.1 29.6 L (30.3-42.9) % Plt Count 414 272 (140-440) K/mm3 BMP 01/10/21 01/11/21 11:20 04:42 Sodium 132 L 131 L Potassium 4.2 4.1 Chloride 91.7 L 97.3 L Carbon Dioxide 16 L 15 L BUN 87 H 81 H Creatinine 13.1 H 11.7 H Glucose 162 H 165 H Calcium 8.7 7.6 L Liver Function 01/10/21 01/11/21 Range/Units 11:20 04:42 Total Bilirubin 0.50 0.20 (0.1-1.2) mg/dL AST 12 9 (5-40) units/L ALT < 5 L < 5 L (7-56) units/L Alkaline Phosphatase 130 H 115 (35-129) units/L Albumin 3.5 L 2.7 L (3.9-5) g/dL Urine 01/10/21 Range/Units 14:24 Urine Color Yellow (Yellow) Urine pH 5.0 (5.0-7.0) Ur Specific [place] 1.008 (1.003-1.030) Urine Protein 30 mg/dl (Negative) mg/dL Urine Glucose (UA) Neg (Negative) mg/dL Microbiology: Microbiology 01/10/21 12:48 Peripheral/Venous Blood Culture - Preliminary Culture in Progress 01/10/21 12:48 Peripheral/Venous Blood Culture - Preliminary Culture in Progress - Imaging and Cardiology CT scan - abdomen: report reviewed Imaging and Cardiology: Abdominal CAT scan 7 mm obstructing calculus within the proximal left ureter at the ureteropelvic junction. This produces moderate to severe left-sided hydronephrosis. Nonobstructing 6 mm calyceal stone within the left kidney. Right renal atrophy. Rice/IV: Voiding Method Bedside Commode Assessment and Plan Advance Directives: Yes (Full code) VTE prophylaxis?: Chemical Plan of care discussed with patient/family: Yes - Patient Problems (1) SIRS (systemic inflammatory response syndrome) Current Visit: Yes Status: Acute Plan to address problem: Patient has a high white count and urinary tract infection Patient initiated on IV Rocephin (2) Acute kidney injury (VADIM) with acute tubular necrosis (ATN) Current Visit: Yes Status: Acute Plan to address problem: Patient has a normal creatinine range between 1 and 1.6 and follows with [facility] nephrology. Patient has right renal atrophy Severe left hydronephrosis secondary to obstructing ureteral stone Patient's creatinine is 13.1 Patient being taken to [facility] for nephrostomy Nephrology also consulted IV fluids for now Monitor creatinine on a regular basis and monitor urinary output (3) Hydronephrosis of left kidney Current Visit: Yes Status: Acute Plan to address problem: Due for nephrostomy tube emergently (4) Kidney stones Current Visit: Yes Status: Acute Plan to address problem: Urology consult requested (5) Leukocytosis Current Visit: Yes Status: Acute Qualifiers: Leukocytosis type: unspecified Qualified Code(s): D72.829 - Elevated white blood cell count, unspecified Plan to address problem: Secondary to UTI (6) T2DM (type 2 diabetes mellitus) Current Visit: Yes Status: Chronic Plan to address problem: Coverage for now Check hemoglobin A1c (7) DVT prophylaxis Current Visit: Yes Status: Acute Plan to address problem: On heparin and GI prophylaxis
[2021-01-11] MEDS: cefTRIAXone/NS 1 GM/50 ML 1 GM/50 ML BAG IV SCH (09:17)
[2021-01-11] MEDS: HEPARIN 5,000 UNIT/1 ML VIAL SUB-Q SCH ×2 (09:38→22:00)
--- NOTE | 2021-01-11 09:51 | Consultation ---
History of Present Illness - Reason for Consult Consult date: 01/11/21 acute renal failure, chronic renal failure - History of Present Illness 75-year-old woman who presents with decreased urine output and left lower quadrant severe intermittent pain. Patient found to have a left renal/ureteral stone with hydronephrosis as per imaging in urology office. Patient was having severe intermittent pain in the left lower quadrant for the last 3 days. Had nephrostomy tube placed last night. This AM, feeling well, no nausea. No vomiting. No fever or chills. No hematuria. Good urine output. In the emergency room patient was found to have a creatinine of 13. She follows with Dr. Cheung in CKD clinic, last seen in November 2020 with creatinine 2.0 at that time. Past History Past Medical History: other (CKD, kidney stones) Past Surgical History: Other (kidney stone removal) Social history: no significant social history Family history: no significant family history Medications and Allergies Allergies Allergy/AdvReac Type Severity Reaction Status Date / Time Penicillins Allergy Anaphylaxis Verified 01/10/21 11:04 Sulfa (Sulfonamide Allergy Anaphylaxis Verified 01/10/21 11:04 Antibiotics) Active Meds: Active Medications Acetaminophen (Acetaminophen 325 Mg Tab) 650 mg PO Q4H PRN PRN Reason: Pain MILD(1-3)/Fever >100.5/RICH Famotidine (Famotidine 10 Mg Tab) 10 mg PO BID [facility] Heparin Sodium (Porcine) (Heparin 5,000 Unit/1 Ml Vial) 5,000 unit SUB-Q Q12HR [facility] Last Admin: 01/11/21 09:38 Dose: 5,000 unit Documented by: Hydromorphone HCl (Hydromorphone 1 Mg/1 Ml Inj) 0.5 mg IV Q3H PRN PRN Reason: Pain , Severe (7-10) Sodium Chloride (Nacl 0.9% 1000 Ml) 1,000 mls @ 75 mls/hr IV DIRECT BELA Ceftriaxone Sodium (Rocephin/Ns 1 Gm/50 Ml) 1 gm in 50 mls @ 100 mls/hr IV Q24H [facility]; Protocol Last Admin: 01/11/21 09:17 Dose: 100 mls/hr Documented by: Ondansetron HCl (Ondansetron 4 Mg/2 Ml Inj) 4 mg IV Q3H PRN PRN Reason: Nausea And Vomiting Oxycodone/Acetaminophen (Oxycodone /Acetaminophen 5-325mg Tab) 1 tab PO Q6H PRN PRN Reason: Pain, Moderate (4-6) Last Admin: 01/11/21 09:44 Dose: 1 tab Documented by: Sodium Chloride (Sodium Chloride 0.9% 10 Ml Flush Syringe) 10 ml IV BID BELA Last Admin: 01/10/21 22:52 Dose: 10 ml Documented by: Sodium Chloride (Sodium Chloride 0.9% 10 Ml Flush Syringe) 10 ml IV PRN PRN PRN Reason: LINE FLUSH Review of Systems All systems: negative (as per HPI) Exam - Vital Signs Vital signs: Vital Signs Temp Pulse Resp BP Pulse Ox 97.5 F L 63 18 136/52 97 01/10/21 11:11 01/10/21 11:11 01/10/21 11:11 01/10/21 11:11 01/10/21 11:11 - Physical Exam Narrative exam: Constitutional: no acute distress Head: NC/AT Neck: supple Lungs: clear to auscultation CV: RRR, no M/R/G Abdomen: soft, non-tender, bowel sounds present Back: nontender Extremities: no edema, pulses WNL; left nephrostomy tube noted draining yellow urine Skin: intact Neuro: no focal deficits, alert and oriented x4 Results - Lab Results 01/11/21 04:42 01/11/21 04:42 Most recent lab results Calcium 7.6 mg/dL (8.4-10.2) L 01/11/21 04:42 Assessment and Plan This is a 75 year old woman who presents with obstructive nephropathy, VADIM. # VADIM in CKD: severe VADIM with creatinine from 2.0->13 due to acute obstruction, now s/p nephrostomy tube. Creatinine lower at 11. - appreciate urology, IR input - daily labs - renally dose meds - avoid nephrotoxins - renal diet - no immediate indication for renal replacement therapy; high risk given severity of VADIM but hopeful for recovery - continue IVF if not eating/drinking - strict Is/Os # Left Hydronephrosis/Solitary Kidney: outpatient lithotripsy, [facility]ol[facility] as outpatient if not previously done for medical stone management # UTI: on ceftriaxone, urine culture pending # Acidosis: likely due to VADIM, should improve with supportive measures. No HCO3 repletion given hypocalcemia # Hypoalbuminemia: may be related to poor nutrition # Anemia: last hemoglobin 9.6, monitor # HTN: BP stable
[2021-01-11] MEDS ORDERED: FAMOTIDINE 20 MG/2 ML INJ IV SCH (10:00)
[2021-01-11] MEDS: FAMOTIDINE 10 MG TAB PO SCH ×2 (12:13→22:00)
--- NOTE | 2021-01-11 13:11 | Progress Note ---
Subjective Date of service: 01/11/21 Principal diagnosis: left hydro sepsis renal failure Interval history: 75 year old female with solitary functioning hydronephrotic left kidney who presents with sepsis, and ARF. resting well. left nephrostomy tube draining well home with perc when stable no gu intervention at this time will need outpt ESWL Objective - Constitutional Vitals: Vital Signs - 12hr 01/11/21 01/11/21 01/11/21 04:12 08:31 10:07 Temperature 98.9 F 97.3 F L Pulse Rate 68 65 Respiratory 18 18 18 Rate Blood Pressure 126/53 143/63 O2 Sat by Pulse 93 95 Oximetry 01/11/21 11:47 Temperature 97.3 F L Pulse Rate 65 Respiratory 18 Rate Blood Pressure 145/67 O2 Sat by Pulse 94 Oximetry - Labs CBC & Chem 7: 01/11/21 04:42 01/11/21 04:42 Labs: Abnormal lab results 01/10/21 01/11/21 01/11/21 Range/Units 14:24 04:42 04:42 RBC 3.35 L (3.65-5.03) M/mm3 Hgb 9.6 L (10.1-14.3) gm/dl Hct 29.6 L (30.3-42.9) % Seg Neutrophils % 78.8 H (40.0-70.0) % Sodium 131 L (137-145) mmol/L Chloride 97.3 L (98-107) mmol/L Carbon Dioxide 15 L (22-30) mmol/L BUN 81 H (7-17) mg/dL Creatinine 11.7 H (0.6-1.2) mg/dL Glucose 165 H (65-100) mg/dL Calcium 7.6 L (8.4-10.2) mg/dL ALT < 5 L (7-56) units/L Total Protein 5.5 L D (6.3-8.2) g/dL Albumin 2.7 L (3.9-5) g/dL Urine WBC (Auto) 42.0 H (0.0-6.0) /HPF U Epithel Cells (Auto) 64.0 H (0-13.0) /HPF Medications & Allergies - Medications Allergies/Adverse Reactions: Allergies Penicillins Allergy (Verified 01/10/21 11:04) Anaphylaxis Sulfa (Sulfonamide Antibiotics) Allergy (Verified 01/10/21 11:04) Anaphylaxis Active Medications: Generic Name Dose Route Start Last Admin Trade Name Freq PRN Reason Stop Dose Admin Acetaminophen 650 mg 01/10/21 22:21 Acetaminophen 325 Mg Tab PO Q4H PRN Pain MILD(1-3)/Fever >100.5/RICH Famotidine 10 mg 01/11/21 10:00 01/11/21 12:13 Famotidine 10 Mg Tab PO 10 mg BID BELA Administration Heparin Sodium (Porcine) 5,000 unit 01/11/21 10:00 01/11/21 09:38 Heparin 5,000 Unit/1 Ml Vial SUB-Q 5,000 unit Q12HR BELA Administration Hydromorphone HCl 0.5 mg 01/10/21 22:05 Hydromorphone 1 Mg/1 Ml Inj IV Q3H PRN Pain , Severe (7-10) Sodium Chloride 1,000 mls @ 75 mls/hr 01/10/21 22:30 Nacl 0.9% 1000 Ml IV DIRECT BELA Ceftriaxone Sodium 1 gm in 50 mls @ 100 mls/hr 01/11/21 10:00 01/11/21 09:17 Rocephin/Ns 1 Gm/50 Ml IV 100 mls/hr Q24H BELA Administration Protocol Ondansetron HCl 4 mg 01/10/21 22:21 Ondansetron 4 Mg/2 Ml Inj IV Q3H PRN Nausea And Vomiting Oxycodone/Acetaminophen 1 tab 01/10/21 22:28 01/11/21 09:44 Oxycodone /Acetaminophen 5-325mg Tab PO 1 tab Q6H PRN Administration Pain, Moderate (4-6) Sodium Chloride 10 ml 01/10/21 23:00 01/11/21 12:12 Sodium Chloride 0.9% 10 Ml Flush Syringe IV 10 ml BID BELA Administration Sodium Chloride 10 ml 01/10/21 22:21 Sodium Chloride 0.9% 10 Ml Flush Syringe IV PRN PRN LINE FLUSH
--- NOTE | 2021-01-11 13:49 | Progress Note ---
Subjective Date of service: 01/11/21 Principal diagnosis: left hydro sepsis renal failure Interval history: History of present illness: 75-year-old female sent by her urologist for decreased urine output and left lower quadrant severe intermittent pain. Patient apparently has a left renal/ureteral stone with hydronephrosis. Patient had ultrasound in the urology office and was told that she has a kidney stone and hydronephrosis. Patient is sent to the emergency room for evaluation of her left kidney stone and hydronephrosis. Patient has been having severe intermittent pain in the left lower quadrant for the last 3 days. Nausea present. No vomiting. No fever or chills. No hematuria. Decreased urine output. In the emergency room patient was found to have a creatinine of 13. Patient being taken to the [facility] for possible nephrostomy on the left side 01/11 patient is alert and oriented. Not in any distress and offers no specific complaints except mild discomfort in the left mid back She denies any fever or chills. Denies chest pain or shortness of breath . lab results reviewed. Nephrology, vascular and urology notes reviewed Assessment and plan Left hydronephrosis/solitary kidney Status post percutaneous left nephrostomy tube placement Draining urine well and urine appears clear Acute kidney injury versus end-stage renal disease Nephrology note reviewed Serum creatinine slightly down from 13-11 today Continue management per nephrology recommendations May need long-term hemodialysis if patient's serum creatinine remains unchanged UTI Continue ceftriaxone Await urine culture results Left kidney stone Urology note reviewed For outpatient lithotripsy Hyperglycemia Accu-Cheks reviewed A1c 5.9 PCM-moderate Serum albumin 2.7 DVT prophylaxis-Heparin subcu Objective - Constitutional Vitals: Vital Signs - 12hr 01/11/21 01/11/21 01/11/21 04:12 08:31 10:07 Temperature 98.9 F 97.3 F L Pulse Rate 68 65 Respiratory 18 18 18 Rate Blood Pressure 126/53 143/63 O2 Sat by Pulse 93 95 Oximetry 01/11/21 11:47 Temperature 97.3 F L Pulse Rate 65 Respiratory 18 Rate Blood Pressure 145/67 O2 Sat by Pulse 94 Oximetry General appearance: Present: no acute distress - EENT Eyes: PERRL, EOM intact ENT: hearing intact, clear oral mucosa - Neck Neck: supple, normal ROM, no masses or JVD - Respiratory Respiratory effort: normal Respiratory: bilateral: CTA - Cardiovascular Rhythm: regular Heart Sounds: Present: S1 & S2 Extremities: No edema - Gastrointestinal General gastrointestinal: Present: soft, non-tender Rectal Exam: deferred - Genitourinary Female genitourinary: deferred - Integumentary Integumentary: clear - Musculoskeletal Musculoskeletal: strength equal bilaterally - Neurologic Neurologic: no focal deficits - Psychiatric Psychiatric: appropriate mood/affect - Labs CBC & Chem 7: 01/11/21 04:42 01/11/21 04:42 Labs: Abnormal lab results 01/10/21 01/11/21 01/11/21 Range/Units 14:24 04:42 04:42 RBC 3.35 L (3.65-5.03) M/mm3 Hgb 9.6 L (10.1-14.3) gm/dl Hct 29.6 L (30.3-42.9) % Seg Neutrophils % 78.8 H (40.0-70.0) % Sodium 131 L (137-145) mmol/L Chloride 97.3 L (98-107) mmol/L Carbon Dioxide 15 L (22-30) mmol/L BUN 81 H (7-17) mg/dL Creatinine 11.7 H (0.6-1.2) mg/dL Glucose 165 H (65-100) mg/dL POC Glucose (70-105) mg/dL Calcium 7.6 L (8.4-10.2) mg/dL ALT < 5 L (7-56) units/L Total Protein 5.5 L D (6.3-8.2) g/dL Albumin 2.7 L (3.9-5) g/dL Urine WBC (Auto) 42.0 H (0.0-6.0) /HPF U Epithel Cells (Auto) 64.0 H (0-13.0) /HPF 01/11/21 01/11/21 Range/Units 08:29 11:45 RBC (3.65-5.03) M/mm3 Hgb (10.1-14.3) gm/dl Hct (30.3-42.9) % Seg Neutrophils % (40.0-70.0) % Sodium (137-145) mmol/L Chloride (98-107) mmol/L Carbon Dioxide (22-30) mmol/L BUN (7-17) mg/dL Creatinine (0.6-1.2) mg/dL Glucose (65-100) mg/dL POC Glucose 125 H 160 H (70-105) mg/dL Calcium (8.4-10.2) mg/dL ALT (7-56) units/L Total Protein (6.3-8.2) g/dL Albumin (3.9-5) g/dL Urine WBC (Auto) (0.0-6.0) /HPF U Epithel Cells (Auto) (0-13.0) /HPF
--- NOTE | 2021-01-11 18:42 | Electrocardiograph Report ---
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
--- NOTE | 2021-01-11 20:59 | Event Note ---
Date: 01/11/21 Contacted by nurse. Ultimately, the patient has her stitches intact. No oozing from her back. Told to flush tube and reconnect to empty drainage bag. Assess drainage tonight. Ordered KUB. Needs to be in restraints or she will displace or severely traumatize her kidney. Once her mental status improves, then she may be considered for restraint removal. Will probably need 1:1 sitter.
--- NOTE | 2021-01-11 21:32 | XRay Report ---
ABDOMEN 1 VIEW 01/11/2021 8:09 PM INDICATION / CLINICAL INFORMATION: dislodged. COMPARISON: CT abdomen pelvis 01/10/2021 FINDINGS: TUBES / LINES: Coiled all purpose drainage catheter in the left upper quadrant. BOWEL GAS PATTERN: No significant abnormality. FREE AIR / EXTRALUMINAL GAS: None. ADDITIONAL FINDINGS: Subcentimeter calcific density overlies the left renal shadow. IMPRESSION: 1. Cold all-purpose drainage catheter is visualized in the left upper quadrant. Catheter is coiled di rectly adjacent to a subcentimeter left nephrolith. Signer Name: Lance Mari MD Signed: 01/11/2021 9:28 PM Workstation Name: [id number]
--- NOTE | 2021-01-11 22:53 | Cat Scan Report ---
CT ABDOMEN AND PELVIS WITHOUT CONTRAST INDICATION / CLINICAL INFORMATION: displaced nephrostomy tube. TECHNIQUE: Axial CT images were obtained through the abdomen and pelvis without IV contrast. All CT scans at this location are performed using CT dose reduction for ALARA by means of automated exposure control. COMPARISON: 01/10/2021. FINDINGS: LOWER CHEST: Basilar atelectasis. LIVER: No significant abnormality. GALLBLADDER: No significant abnormality. BILE DUCTS: No significant abnormality. PANCREAS: No significant abnormality. SPLEEN: No significant abnormality. ADRENALS: No significant abnormality. RIGHT KIDNEY / URETER: Persistent right renal atrophy. LEFT KIDNEY / URETER: Persistent hydronephrosis of the left renal collecting system and proximal uret er to the level of a 7 mm stone just below the ureteropelvic pelvic junction. Nonobstructing calyceal stones remain. A nephrostomy catheter lies within the parenchymal along the posterior aspect of the kidney. Mild inflammation is seen adjacent to the left kidney. STOMACH / SMALL BOWEL: No significant abnormality. COLON: No significant abnormality. APPENDIX: No significant abnormality. PERITONEUM: No free fluid. No free air. No fluid collection. LYMPH NODES: No significant adenopathy. VASCULAR STRUCTURES: Mild atherosclerotic vascular calcification. URINARY BLADDER: No significant abnormality. REPRODUCTIVE ORGANS: Previous hysterectomy and small right ovarian cysts remain. ADDITIONAL FINDINGS: None. SKELETAL SYSTEM: No significant abnormality. IMPRESSION: 1. Interval placement of left-sided nephrostomy catheter which is malpositioned in the parenchyma pos teriorly. Hydronephrosis, calyceal stones and an obstructing proximal ureteral stone remain. Mild inf lammation is now seen adjacent to the left kidney. 2. Development of basilar atelectasis. Signer Name: Barron Chen MD Signed: 01/11/2021 10:49 PM Workstation Name: [id number]
[2021-01-12 05:56] LABS: Hematocrit 34.3 % (30.3-42.9); Hemoglobin 11.3 gm/dl (10.1-14.3); Mean Corpuscular HGB Conc 33 % (30-34); Mean Corpuscular Volume 89 fl (79-97); Platelet Count 343 K/mm3 (140-440); Red Blood Count 3.86 M/mm3 (3.65-5.03); Red Cell Distribution Width 13.1 % (13.2-15.2)
[2021-01-12 06:02] LABS: Calcium 8.1 mg/dL (8.4-10.2)
[2021-01-12] MEDS: cefTRIAXone/NS 1 GM/50 ML 1 GM/50 ML BAG IV SCH (09:18)
[2021-01-12] MEDS: FAMOTIDINE 10 MG TAB PO SCH ×2 (09:23→21:44)
[2021-01-12] MEDS ORDERED: amLODIPine 5 MG TAB PO SCH ×2 (10:00→10:30)
--- NOTE | 2021-01-12 10:05 | Progress Note ---
Subjective Date of service: 01/12/21 Principal diagnosis: left hydro sepsis renal failure Interval history: History of present illness: 75-year-old female sent by her urologist for decreased urine output and left lower quadrant severe intermittent pain. Patient apparently has a left renal/ureteral stone with hydronephrosis. Patient had ultrasound in the urology office and was told that she has a kidney stone and hydronephrosis. Patient is sent to the emergency room for evaluation of her left kidney stone and hydronephrosis. Patient has been having severe intermittent pain in the left lower quadrant for the last 3 days. Nausea present. No vomiting. No fever or chills. No hematuria. Decreased urine output. In the emergency room patient was found to have a creatinine of 13. Patient being taken to the [facility] for possible nephrostomy on the left side 01/11 patient is alert and oriented. Not in any distress and offers no specific complaints except mild discomfort in the left mid back She denies any fever or chills. Denies chest pain or shortness of breath . lab results reviewed. Nephrology, vascular and urology notes reviewed 01/12 patient is awake and alert, ? Confused. She wants to know why she is in the hospital when she has a water engineer, geophysicist and primary care physician whom she follows with. Not in any distress and she offers no specific complaints. She wants to know when the tube (PCN) can be taken out All questions were answered patiently. Will reorder restraints as the patient keeps looking at the extension of the PCN tube by the side of her bed to prevent from the tube getting dislodged. Vascular surgeons note reviewed. Patient denies any fever or chills or chest pain or shortness of breath. Lab results reviewed Assessment and plan Left hydronephrosis/solitary kidney Status post percutaneous left nephrostomy tube placement Draining pinkish urine Acute kidney injury versus end-stage renal disease Nephrology note reviewed Serum creatinine trending down from 13-11 > 9.2 today Continue management per nephrology recommendations UTI Continue ceftriaxone urine culture dkyodts-regdxrbncyz-abwnij skin antione Blood cultures-no growth in 24 hours Left kidney stone Urology note reviewed For outpatient lithotripsy Hypertensive urgency Increase amlodipine to 10 mg Add hydralazine 25 3 times daily Hyperglycemia Accu-Cheks reviewed A1c 5.9 PCM-moderate Serum albumin 2.7 DVT prophylaxis-Heparin subcu Objective - Constitutional Vitals: Vital Signs - 12hr 01/12/21 01/12/21 01/12/21 01:00 04:12 09:22 Temperature 98.0 F 98.0 F 97.8 F Pulse Rate 64 67 67 Respiratory 18 18 18 Rate Blood Pressure 150/65 190/62 190/70 O2 Sat by Pulse 94 97 97 Oximetry 01/12/21 09:23 Temperature Pulse Rate 67 Respiratory Rate Blood Pressure 190/70 O2 Sat by Pulse Oximetry General appearance: Present: no acute distress, well-nourished - EENT Eyes: PERRL, EOM intact ENT: hearing intact - Neck Neck: supple, normal ROM, no masses or JVD - Respiratory Respiratory effort: normal Respiratory: bilateral: CTA - Cardiovascular Rhythm: regular Heart Sounds: Present: S1 & S2 Extremities: No edema - Gastrointestinal General gastrointestinal: Present: soft, non-tender Rectal Exam: deferred - Genitourinary Female genitourinary: deferred - Integumentary Integumentary: clear - Musculoskeletal Musculoskeletal: strength equal bilaterally - Neurologic Neurologic: no focal deficits, moves all extremities - Labs CBC & Chem 7: 01/12/21 05:01 01/12/21 05:01 Labs: Abnormal lab results 01/11/21 01/11/21 01/11/21 Range/Units 08:29 11:45 15:45 RDW (13.2-15.2) % Sodium (137-145) mmol/L Chloride (98-107) mmol/L Carbon Dioxide (22-30) mmol/L BUN (7-17) mg/dL Creatinine (0.6-1.2) mg/dL Glucose (65-100) mg/dL POC Glucose 125 H 160 H 216 H (70-105) mg/dL Calcium (8.4-10.2) mg/dL 01/12/21 01/12/21 Range/Units 05:01 05:01 RDW 13.1 L (13.2-15.2) % Sodium 133 L (137-145) mmol/L Chloride 97.2 L (98-107) mmol/L Carbon Dioxide 14 L (22-30) mmol/L BUN 78 H (7-17) mg/dL Creatinine 9.2 H (0.6-1.2) mg/dL Glucose 173 H (65-100) mg/dL POC Glucose (70-105) mg/dL Calcium 8.1 L (8.4-10.2) mg/dL
[2021-01-12] MEDS: HEPARIN 5,000 UNIT/1 ML VIAL SUB-Q SCH ×2 (10:13→21:45)
--- NOTE | 2021-01-12 10:15 | Event Note ---
Date: 01/12/21 Has put out 1200 mL of urine this morning. Tube is definitely in the collecting system. Urine is yellow. Restore diet. Probable nephrostomy exchange early this upcoming week.
--- NOTE | 2021-01-12 11:50 | Progress Note ---
Assessment and Plan This is a 75 year old woman who presents with obstructive nephropathy, VADIM. # VADIM in CKD: severe VADIM with creatinine from 2.0->13 due to acute obstruction, now s/p nephrostomy tube. Creatinine lower at 11.7->9.2 this AM. - appreciate urology, IR input - daily labs - renally dose meds - avoid nephrotoxins - renal diet - no immediate indication for renal replacement therapy; high risk given severity of VADIM but showing recovery - continue IVF if not eating/drinking - strict Is/Os - no specific need to remain inpatient from nephrology perspective, will ensure close VADIM/CKD follow up on discharge # Left Hydronephrosis/Solitary Kidney: outpatient lithotripsy, [facility] as outpatient if not previously done for medical stone management # UTI: on ceftriaxone, urine culture pending # Acidosis: likely due to VADIM, should improve with supportive measures. No HCO3 repletion given hypocalcemia # Hypoalbuminemia: may be related to poor nutrition # Anemia: last hemoglobin 9.6->11.3, monitor # HTN: BP high today. Agree with increased amlodipine, may be able to stop IVF if eating/drinking Subjective Date of service: 01/12/21 Principal diagnosis: left hydro sepsis renal failure Interval history: No acute issues noted, wants to go home Objective - Exam Narrative Exam: Constitutional: no acute distress Head: NC/AT Neck: supple Lungs: clear to auscultation CV: RRR, no M/R/G Abdomen: soft, non-tender, bowel sounds present Back: nontender Extremities: no edema, pulses WNL; left nephrostomy tube noted draining yellow urine Skin: intact Neuro: no focal deficits, alert and oriented x4 - Vital Signs Vital signs: Vital Signs - 12hr 01/12/21 01/12/21 01/12/21 01:00 04:12 09:22 Temperature 98.0 F 98.0 F 97.8 F Pulse Rate 64 67 67 Respiratory 18 18 18 Rate Blood Pressure 150/65 190/62 190/70 O2 Sat by Pulse 94 97 97 Oximetry 01/12/21 09:23 Temperature Pulse Rate 67 Respiratory Rate Blood Pressure 190/70 O2 Sat by Pulse Oximetry - Lab 01/12/21 05:01 01/12/21 05:01 Most recent lab results Calcium 8.1 mg/dL (8.4-10.2) L 01/12/21 05:01 Medications & Allergies - Medications Allergies/Adverse Reactions: Allergies Penicillins Allergy (Verified 01/10/21 11:04) Anaphylaxis Sulfa (Sulfonamide Antibiotics) Allergy (Verified 01/10/21 11:04) Anaphylaxis Active Medications: Generic Name Dose Route Start Last Admin Trade Name Freq PRN Reason Stop Dose Admin Acetaminophen 650 mg 01/10/21 22:21 Acetaminophen 325 Mg Tab PO Q4H PRN Pain MILD(1-3)/Fever >100.5/RICH Amlodipine Besylate 10 mg 01/13/21 10:00 Amlodipine 10 Mg Tab PO QDAY BELA Amlodipine Besylate 5 mg 01/12/21 10:30 Amlodipine 5 Mg Tab PO 01/12/21 12:00 ONCE BELA Famotidine 10 mg 01/11/21 10:00 01/12/21 09:23 Famotidine 10 Mg Tab PO 10 mg BID BELA Administration Heparin Sodium (Porcine) 5,000 unit 01/11/21 10:00 01/12/21 10:13 Heparin 5,000 Unit/1 Ml Vial SUB-Q 5,000 unit Q12HR BELA Administration Hydralazine HCl 25 mg 01/12/21 10:30 Hydralazine 25 Mg Tab PO Q8HR BELA Hydromorphone HCl 0.5 mg 01/10/21 22:05 01/11/21 15:30 Hydromorphone 1 Mg/1 Ml Inj IV 0.5 mg Q3H PRN Administration Pain , Severe (7-10) Sodium Chloride 1,000 mls @ 75 mls/hr 01/10/21 22:30 Nacl 0.9% 1000 Ml IV DIRECT BELA Ceftriaxone Sodium 1 gm in 50 mls @ 100 mls/hr 01/11/21 10:00 01/12/21 09:18 Rocephin/Ns 1 Gm/50 Ml IV 100 mls/hr Q24H BELA Administration Protocol Ondansetron HCl 4 mg 01/10/21 22:21 Ondansetron 4 Mg/2 Ml Inj IV Q3H PRN Nausea And Vomiting Oxycodone/Acetaminophen 1 tab 01/10/21 22:28 01/11/21 09:44 Oxycodone /Acetaminophen 5-325mg Tab PO 1 tab Q6H PRN Administration Pain, Moderate (4-6) Sodium Chloride 10 ml 01/10/21 23:00 01/12/21 09:22 Sodium Chloride 0.9% 10 Ml Flush Syringe IV 10 ml BID BELA Administration Sodium Chloride 10 ml 01/10/21 22:21 Sodium Chloride 0.9% 10 Ml Flush Syringe IV PRN PRN LINE FLUSH
[2021-01-12] MEDS: hydrALAZINE 25 MG TAB PO SCH ×3 (12:56→21:44)
[2021-01-13] MEDS: ACETAMINOPHEN 325 MG TAB PO PRN (00:32)
[2021-01-13] MEDS: hydrALAZINE 25 MG TAB PO SCH ×3 (05:50→17:12)
[2021-01-13 07:30] LABS: Calcium 7.9 mg/dL (8.4-10.2)
[2021-01-13] MEDS: FAMOTIDINE 10 MG TAB PO SCH ×2 (09:36→21:58)
[2021-01-13] MEDS: amLODIPine 10 MG TAB PO SCH (09:36)
[2021-01-13] MEDS: HEPARIN 5,000 UNIT/1 ML VIAL SUB-Q SCH ×2 (09:37→21:58)
[2021-01-13] MEDS: cefTRIAXone/NS 1 GM/50 ML 1 GM/50 ML BAG IV SCH (09:38)
--- NOTE | 2021-01-13 10:32 | Event Note ---
Date: 01/13/21 Had 300 output this morning. NEEDS 1:1 SITTER. Still was not ordered. Discussed now with charge nurse. Patient intermittently hallucinates and pulls on her nephrostomy tube. The tube is partially dislodged. Plan for replacement or new placement on thursday. This is a complicated situation due to patient noncompliance with tube.
--- NOTE | 2021-01-13 11:16 | Progress Note ---
Subjective Date of service: 01/13/21 Principal diagnosis: left hydro sepsis renal failure Interval history: History of present illness: 75-year-old female sent by her urologist for decreased urine output and left lower quadrant severe intermittent pain. Patient apparently has a left renal/ureteral stone with hydronephrosis. Patient had ultrasound in the urology office and was told that she has a kidney stone and hydronephrosis. Patient is sent to the emergency room for evaluation of her left kidney stone and hydronephrosis. Patient has been having severe intermittent pain in the left lower quadrant for the last 3 days. Nausea present. No vomiting. No fever or chills. No hematuria. Decreased urine output. In the emergency room patient was found to have a creatinine of 13. Patient being taken to the [facility] for possible nephrostomy on the left side 01/11 patient is alert and oriented. Not in any distress and offers no specific complaints except mild discomfort in the left mid back She denies any fever or chills. Denies chest pain or shortness of breath . lab results reviewed. Nephrology, vascular and urology notes reviewed 01/12 patient is awake and alert, ? Confused. She wants to know why she is in the hospital when she has a correction officer, colliery clerk and primary care physician whom she follows with. Not in any distress and she offers no specific complaints. She wants to know when the tube (PCN) can be taken out All questions were answered patiently. Will reorder restraints as the patient keeps looking at the extension of the PCN tube by the side of her bed to prevent from the tube getting dislodged. Vascular surgeons note reviewed. Patient denies any fever or chills or chest pain or shortness of breath. Lab results reviewed 01/13 patient appears much more alert and oriented today and a lot less confused. She has been off wrist restraints. She offers no specific complaints. She denies any fever or chills or chest pain or shortness of breath. Lab results reviewed. Vascular and nephrology notes reviewed Assessment and plan Left hydronephrosis/solitary kidney Status post percutaneous left nephrostomy tube placement Draining clear urine today Acute on chronic kidney disease secondary to obstructive nephropathy Nephrology note reviewed Baseline serum creatinine is around 2 Serum creatinine trending down from 13-11 > 9.2> 6.5 today Continue management per nephrology recommendations Metabolic acidosis Improving Today's lab results reviewed UTI Continue ceftriaxone urine culture plixzun-hsauuigbbor-sgdtcu skin antione Blood cultures-no growth in 24 hours Left kidney stone Urology note reviewed For outpatient lithotripsy Hypertensive urgency Blood pressure is poorly controlled Continue amlodipine to 10 mg Increase hydralazine 50, 3 times daily Likely secondary to IV fluids Await follow-up by nephrology Hyperglycemia Accu-Cheks reviewed A1c 5.9 PCM-moderate Serum albumin 2.7 DVT prophylaxis-Heparin subcu Objective - Constitutional Vitals: Vital Signs - 12hr 01/13/21 01/13/21 01/13/21 00:02 04:31 05:50 Temperature 98.2 F 98.0 F Pulse Rate 72 62 Respiratory 18 18 Rate Blood Pressure 188/70 171/53 171/53 O2 Sat by Pulse 96 96 Oximetry 01/13/21 08:43 Temperature 97.2 F L Pulse Rate 63 Respiratory 18 Rate Blood Pressure 185/64 O2 Sat by Pulse 97 Oximetry General appearance: Present: no acute distress - EENT Eyes: EOM intact ENT: hearing intact - Neck Neck: supple, normal ROM, no masses or JVD - Respiratory Respiratory effort: normal Respiratory: bilateral: CTA - Cardiovascular Rhythm: regular Heart Sounds: Present: S1 & S2 Extremities: No edema - Gastrointestinal General gastrointestinal: Present: soft, non-tender Rectal Exam: deferred - Genitourinary Female genitourinary: deferred, other (Has a percutaneous nephrostomy tube in the left side) - Integumentary Integumentary: clear - Musculoskeletal Musculoskeletal: strength equal bilaterally - Neurologic Neurologic: no focal deficits, moves all extremities - Psychiatric Psychiatric: appropriate mood/affect - Labs CBC & Chem 7: 01/12/21 05:01 01/13/21 05:12 Labs: Abnormal lab results 01/12/21 01/13/21 Range/Units 21:33 05:12 Carbon Dioxide 19 L (22-30) mmol/L BUN 74 H (7-17) mg/dL Creatinine 6.5 H (0.6-1.2) mg/dL Glucose 156 H (65-100) mg/dL POC Glucose 190 H (70-105) mg/dL Calcium 7.9 L (8.4-10.2) mg/dL
--- NOTE | 2021-01-13 15:02 | Progress Note ---
Assessment and Plan This is a 75 year old woman who presents with obstructive nephropathy, VADIM. # VADIM in CKD: severe VADIM with creatinine from 2.0->13 due to acute obstruction, now s/p nephrostomy tube. Creatinine lower at 11.7->9.2->6.5 this AM. - appreciate urology, IR input - daily labs - renally dose meds - avoid nephrotoxins - renal diet - no immediate indication for renal replacement therapy; high risk given severity of VADIM but showing recovery - strict Is/Os - no specific need to remain inpatient from nephrology perspective, will ensure close VADIM/CKD follow up on discharge # Left Hydronephrosis/Solitary Kidney: outpatient lithotripsy, [facility]olink as outpatient if not previously done for medical stone management # UTI: on ceftriaxone, urine culture reviewed # Acidosis: likely due to VADIM, should improve with supportive measures. HCO3 improving to 19 # Hypoalbuminemia: may be related to poor nutrition # Anemia: last hemoglobin 9.6->11.3, monitor # HTN: BP high today. Agree with increased amlodipine, now on hydralazine as well. Will stop IVF at this time Subjective Date of service: 01/13/21 Principal diagnosis: left hydro sepsis renal failure Interval history: No acute issues noted, seems alert Objective - Exam Narrative Exam: Constitutional: no acute distress Head: NC/AT Neck: supple Lungs: clear to auscultation CV: RRR, no M/R/G Abdomen: soft, non-tender, bowel sounds present Back: nontender Extremities: no edema, pulses WNL; left nephrostomy tube noted draining yellow urine Skin: intact Neuro: no focal deficits, alert and oriented x4 - Vital Signs Vital signs: Vital Signs - 12hr 01/13/21 01/13/21 01/13/21 04:31 05:50 08:43 Temperature 98.0 F 97.2 F L Pulse Rate 62 63 Respiratory 18 18 Rate Blood Pressure 171/53 171/53 185/64 O2 Sat by Pulse 96 97 Oximetry 01/13/21 01/13/21 10:00 13:00 Temperature Pulse Rate 51 L Respiratory 18 Rate Blood Pressure O2 Sat by Pulse 98 Oximetry - Lab 01/12/21 05:01 01/13/21 05:12 Most recent lab results Calcium 7.9 mg/dL (8.4-10.2) L 01/13/21 05:12 Medications & Allergies - Medications Allergies/Adverse Reactions: Allergies Penicillins Allergy (Verified 01/10/21 11:04) Anaphylaxis Sulfa (Sulfonamide Antibiotics) Allergy (Verified 01/10/21 11:04) Anaphylaxis Active Medications: Generic Name Dose Route Start Last Admin Trade Name Freq PRN Reason Stop Dose Admin Acetaminophen 650 mg 01/10/21 22:21 01/13/21 00:32 Acetaminophen 325 Mg Tab PO 650 mg Q4H PRN Administration Pain MILD(1-3)/Fever >100.5/RICH Amlodipine Besylate 10 mg 01/13/21 10:00 01/13/21 09:36 Amlodipine 10 Mg Tab PO 10 mg QDAY BELA Administration Famotidine 10 mg 01/11/21 10:00 01/13/21 09:36 Famotidine 10 Mg Tab PO 10 mg BID BELA Administration Heparin Sodium (Porcine) 5,000 unit 01/11/21 10:00 01/13/21 09:37 Heparin 5,000 Unit/1 Ml Vial SUB-Q 5,000 unit Q12HR BELA Administration Hydralazine HCl 50 mg 01/13/21 08:00 01/13/21 09:36 Hydralazine 25 Mg Tab PO 50 mg Q8H BELA Administration Sodium Chloride 1,000 mls @ 75 mls/hr 01/10/21 22:30 Nacl 0.9% 1000 Ml IV DIRECT BELA Ceftriaxone Sodium 1 gm in 50 mls @ 100 mls/hr 01/11/21 10:00 01/13/21 09:38 Rocephin/Ns 1 Gm/50 Ml IV 100 mls/hr Q24H BELA Administration Protocol Ondansetron HCl 4 mg 01/10/21 22:21 Ondansetron 4 Mg/2 Ml Inj IV Q3H PRN Nausea And Vomiting Sodium Chloride 10 ml 01/10/21 23:00 01/13/21 09:37 Sodium Chloride 0.9% 10 Ml Flush Syringe IV 10 ml BID BELA Administration Sodium Chloride 10 ml 01/10/21 22:21 Sodium Chloride 0.9% 10 Ml Flush Syringe IV PRN PRN LINE FLUSH
[2021-01-13] MEDS: INSULIN LISPRO 100 UNIT/ML SUB-Q SCH (22:33)
[2021-01-14 06:54] LABS: Calcium 7.8 mg/dL (8.4-10.2)
[2021-01-14] MEDS: INSULIN LISPRO 100 UNIT/ML SUB-Q SCH ×4 (08:15→22:06)
--- NOTE | 2021-01-14 08:27 | Progress Note ---
Assessment and Plan spoke with dr little \ he is concerned she might]pull it out accidentally \will try stent creat 4.9n he will back up perc if cant get stent Subjective Date of service: 01/14/21 Principal diagnosis: left hydro sepsis renal failure Objective - Constitutional Vitals: Vital Signs - 12hr 01/13/21 01/13/21 01/14/21 21:00 23:35 04:09 Temperature 98.0 F 97.3 F L Pulse Rate 52 L 60 60 Respiratory 14 14 Rate Blood Pressure 148/58 169/57 O2 Sat by Pulse 98 97 Oximetry 01/14/21 01/14/21 05:00 08:05 Temperature 98.2 F Pulse Rate 60 58 L Respiratory 18 Rate Blood Pressure 177/55 O2 Sat by Pulse 100 Oximetry General appearance: Present: no acute distress - Neck Neck: supple - Respiratory Respiratory effort: normal - Gastrointestinal General gastrointestinal: Present: non-tender - Labs CBC & Chem 7: 01/12/21 05:01 01/14/21 05:02 Labs: Abnormal lab results 01/13/21 01/13/21 01/13/21 Range/Units 08:10 12:07 15:44 Carbon Dioxide (22-30) mmol/L BUN (7-17) mg/dL Creatinine (0.6-1.2) mg/dL POC Glucose 149 H 263 H 289 H (70-105) mg/dL Calcium (8.4-10.2) mg/dL 01/13/21 01/14/21 Range/Units 21:41 05:02 Carbon Dioxide 17 L (22-30) mmol/L BUN 63 H (7-17) mg/dL Creatinine 4.9 H (0.6-1.2) mg/dL POC Glucose 237 H (70-105) mg/dL Calcium 7.8 L (8.4-10.2) mg/dL Medications & Allergies - Medications Allergies/Adverse Reactions: Allergies Penicillins Allergy (Verified 01/10/21 11:04) Anaphylaxis Sulfa (Sulfonamide Antibiotics) Allergy (Verified 01/10/21 11:04) Anaphylaxis Home Medications: Home Medications Medication Instructions Recorded Confirmed Last Taken Type Colesevelam [Welchol] 625 tab PO 01/14/21 01/09/21 History 625 Estradiol 1 mg PO QAM 01/14/21 01/14/21 01/09/21 08:00 History 1 mg ISOSORBIDE MONOnitrate [Imdur ER] 30 mg PO DAILY 01/14/21 01/14/21 01/09/21 History Lantus Solostar 10 units SQ QA 01/14/21 01/14/21 01/09/21 08:00 History Levothyroxine [Synthroid] 75 mcg PO QA 01/14/21 01/14/21 01/09/21 08:00 History Losartan [Cozaar] 25 mg PO QA 01/14/21 01/14/21 01/09/21 08:00 History 25 mg NIFEdipine [Nifedipine ER] 60 mg PO QHS 01/14/21 01/14/21 01/09/21 20:00 History 60 mg NIFEdipine [Nifedipine ER] mg PO DAILY 01/14/21 01/09/21 20:00 History 60 mg Nebivolol HCl [Bystolic] 1 tab PO DAILY 01/14/21 01/14/21 01/09/21 20:00 History 1 Nebivolol HCl [Bystolic] 1 tab PO DAILY 01/14/21 01/14/21 01/09/21 20:00 History 625 mg Vitamin D3 mg PO DAILY 01/14/21 01/09/21 08:00 History 1 Active Medications: Generic Name Dose Route Start Last Admin Trade Name Freq PRN Reason Stop Dose Admin Acetaminophen 650 mg 01/10/21 22:21 01/13/21 00:32 Acetaminophen 325 Mg Tab PO 650 mg Q4H PRN Administration Pain MILD(1-3)/Fever >100.5/RICH Amlodipine Besylate 10 mg 01/13/21 10:00 01/13/21 09:36 Amlodipine 10 Mg Tab PO 10 mg QDAY BELA Administration Famotidine 10 mg 01/11/21 10:00 01/13/21 21:58 Famotidine 10 Mg Tab PO 10 mg BID BELA Administration Heparin Sodium (Porcine) 5,000 unit 01/11/21 10:00 01/13/21 21:58 Heparin 5,000 Unit/1 Ml Vial SUB-Q 5,000 unit Q12HR BELA Administration Hydralazine HCl 50 mg 01/13/21 08:00 01/13/21 17:12 Hydralazine 25 Mg Tab PO 50 mg Q8H BELA Administration Ceftriaxone Sodium 1 gm in 50 mls @ 100 mls/hr 01/11/21 10:00 01/13/21 09:38 Rocephin/Ns 1 Gm/50 Ml IV 100 mls/hr Q24H BELA Administration Protocol Insulin Human Lispro 0 unit 01/13/21 22:10 01/14/21 08:15 Insulin Lispro 100 Unit/Ml SUB-Q Not Given ACHS BELA Protocol Ondansetron HCl 4 mg 01/10/21 22:21 Ondansetron 4 Mg/2 Ml Inj IV Q3H PRN Nausea And Vomiting Sodium Chloride 10 ml 01/10/21 23:00 01/13/21 22:05 Sodium Chloride 0.9% 10 Ml Flush Syringe IV 10 ml BID BELA Administration Sodium Chloride 10 ml 01/10/21 22:21 Sodium Chloride 0.9% 10 Ml Flush Syringe IV PRN PRN LINE FLUSH
[2021-01-14] MEDS: amLODIPine 10 MG TAB PO SCH (09:03)
[2021-01-14] MEDS: FAMOTIDINE 10 MG TAB PO SCH ×2 (09:03→22:04)
[2021-01-14] MEDS: hydrALAZINE 25 MG TAB PO SCH (09:03)
[2021-01-14] MEDS: HEPARIN 5,000 UNIT/1 ML VIAL SUB-Q SCH ×2 (09:05→22:04)
[2021-01-14] MEDS ORDERED: fentaNYL 100 MCG/2 ML INJ IV PRN (09:12)
[2021-01-14] MEDS ORDERED: SODIUM CHLORIDE 0.9% 1000 ML 1,000 ML IV SCH (09:15)
--- NOTE | 2021-01-14 09:25 | Anesthesia Consultation ---
Anesthesia Consult and Med Hx Date of service: 01/14/21 - Airway Anesthetic Teeth Evaluation: Good ROM Head & Neck: Adequate Mental/Hyoid Distance: Adequate Mallampati Class: Class III Intubation Access Assessment: Possibly Difficult - Pre-Operative Health Status ASA Pre-Surgery Classification: ASA3 Proposed Anesthetic Plan: General - Pulmonary Hx Smoking: No Hx Respiratory Symptoms: No - Cardiovascular System Hx Hypertension: Yes (received antihypertensives this morning) Hx Heart Attack/AMI: No Hx Percutaneous Transluminal Coronary Angioplasty (PTCA): No Hx Cardia Arrhythmia: No Hx Valvular Heart Disease: Yes (MVP) - Central Nervous System CVA: No - Endocrine Hx Renal Disease: Yes (VADIM on CKD 2/2 obstruction; improving) Hx Liver Disease: No Hx Insulin Dependent Diabetes: Yes Hx Thyroid Disease: No - Hematic Hx Anemia: Yes - Other Systems Hx Obesity: No - Additional Comments Anesthesia Medical History Comments: No hx anesthetic complications. Reports that she received an unknown medication last few nights in the hospital which made her confused. She believes she may have pulled her nephrostomy tube while confused but has no memory of the event. She is currently A&Ox4.
--- NOTE | 2021-01-14 09:26 | Anesthesia Day of Surgery ---
Anesthesia Day of Surgery - Day of Surgery Patient Examined: Yes Patient H&P Reviewed: Yes Patient is NPO: Yes
[2021-01-14] MEDS: cefTRIAXone/NS 1 GM/50 ML 1 GM/50 ML BAG IV SCH (10:08)
[2021-01-14] MEDS ORDERED: LIDOCAINE 2% UROJECT 10 ML JELLY ONE (10:41)
[2021-01-14] MEDS ORDERED: IOHEXOL 300 MG/ML 100ML IV ONE (10:46)
--- NOTE | 2021-01-14 11:15 | Progress Note ---
Subjective Date of service: 01/14/21 Principal diagnosis: left hydro sepsis renal failure Interval history: Discussed with Dr. Kiser. Given her overall improvement, and poor tolerance of nephrostomy tube with partial dislodgment after just a few days, she would benefit more from cystoscopic stent placement. If unsuccessful, will have to readjust nephrostomy tube and replace nephrostomy tube. Objective - Constitutional Vitals: Vital Signs - 12hr 01/13/21 01/14/21 01/14/21 23:35 04:09 05:00 Temperature 98.0 F 97.3 F L Pulse Rate 60 60 60 Pulse Rate [ Apical] Respiratory 14 14 Rate Blood Pressure 148/58 169/57 O2 Sat by Pulse 98 97 Oximetry 01/14/21 01/14/21 01/14/21 07:45 08:05 09:03 Temperature 98.2 F Pulse Rate 58 L 81 Pulse Rate [ 89 Apical] Respiratory 16 18 Rate Blood Pressure 177/55 163/74 O2 Sat by Pulse 99 100 Oximetry 01/14/21 09:25 Temperature 99.1 F Pulse Rate 63 Pulse Rate [ Apical] Respiratory 16 Rate Blood Pressure 177/61 O2 Sat by Pulse 98 Oximetry - Labs CBC & Chem 7: 01/12/21 05:01 01/14/21 05:02 Labs: Abnormal lab results 01/13/21 01/13/21 01/13/21 Range/Units 08:10 12:07 15:44 Carbon Dioxide (22-30) mmol/L BUN (7-17) mg/dL Creatinine (0.6-1.2) mg/dL POC Glucose 149 H 263 H 289 H (70-105) mg/dL Calcium (8.4-10.2) mg/dL 01/13/21 01/14/21 01/14/21 Range/Units 21:41 05:02 10:00 Carbon Dioxide 17 L (22-30) mmol/L BUN 63 H (7-17) mg/dL Creatinine 4.9 H (0.6-1.2) mg/dL POC Glucose 237 H 133 H (70-105) mg/dL Calcium 7.8 L (8.4-10.2) mg/dL Medications & Allergies - Medications Allergies/Adverse Reactions: Allergies Penicillins Allergy (Verified 01/10/21 11:04) Anaphylaxis Sulfa (Sulfonamide Antibiotics) Allergy (Verified 01/10/21 11:04) Anaphylaxis Home Medications: Home Medications Medication Instructions Recorded Confirmed Last Taken Type Colesevelam [Welchol] 625 tab PO 01/14/21 01/09/21 History 625 Estradiol 1 mg PO QAM 01/14/21 01/14/21 01/09/21 08:00 History 1 mg ISOSORBIDE MONOnitrate [Imdur ER] 30 mg PO DAILY 01/14/21 01/14/21 01/09/21 History Lantus Solostar 10 units SQ QA 01/14/21 01/14/21 01/09/21 08:00 History Levothyroxine [Synthroid] 75 mcg PO QAM 01/14/21 01/14/21 01/09/21 08:00 History Losartan [Cozaar] 25 mg PO QA 01/14/21 01/14/21 01/09/21 08:00 History 25 mg NIFEdipine [Nifedipine ER] 60 mg PO QHS 01/14/21 01/14/21 01/09/21 20:00 History 60 mg NIFEdipine [Nifedipine ER] mg PO DAILY 01/14/21 01/09/21 20:00 History 60 mg Nebivolol HCl [Bystolic] 1 tab PO DAILY 01/14/21 01/14/21 01/09/21 20:00 History 1 Nebivolol HCl [Bystolic] 1 tab PO DAILY 01/14/21 01/14/21 01/09/21 20:00 History 625 mg Vitamin D3 mg PO DAILY 01/14/21 01/09/21 08:00 History 1 Active Medications: Generic Name Dose Route Start Last Admin Trade Name Freq PRN Reason Stop Dose Admin Acetaminophen 650 mg 01/10/21 22:21 01/13/21 00:32 Acetaminophen 325 Mg Tab PO 650 mg Q4H PRN Administration Pain MILD(1-3)/Fever >100.5/RICH Amlodipine Besylate 10 mg 01/13/21 10:00 01/14/21 09:03 Amlodipine 10 Mg Tab PO 10 mg QDAY BELA Administration Famotidine 10 mg 01/11/21 10:00 01/14/21 09:03 Famotidine 10 Mg Tab PO 10 mg BID BELA Administration Fentanyl 50 mcg 01/14/21 09:12 Fentanyl 100 Mcg/2 Ml Inj IV 01/14/21 23:00 Q5MIN PRN Pain , Severe (7-10) Heparin Sodium (Porcine) 5,000 unit 01/11/21 10:00 01/14/21 09:05 Heparin 5,000 Unit/1 Ml Vial SUB-Q Not Given Q12HR BELA Hydralazine HCl 50 mg 01/13/21 08:00 01/14/21 09:03 Hydralazine 25 Mg Tab PO 50 mg Q8H BELA Administration Ceftriaxone Sodium 1 gm in 50 mls @ 100 mls/hr 01/11/21 10:00 01/14/21 10:08 Rocephin/Ns 1 Gm/50 Ml IV 100 mls/hr Q24H BELA Administration Protocol Sodium Chloride 1,000 mls @ 75 mls/hr 01/14/21 09:15 01/14/21 09:55 Nacl 0.9% 1000 Ml IV 75 mls/hr DIRECT BELA Administration Insulin Human Lispro 0 unit 01/13/21 22:10 01/14/21 08:15 Insulin Lispro 100 Unit/Ml SUB-Q Not Given ACHS BELA Protocol Ondansetron HCl 4 mg 01/10/21 22:21 Ondansetron 4 Mg/2 Ml Inj IV Q3H PRN Nausea And Vomiting Sodium Chloride 10 ml 01/10/21 23:00 01/14/21 09:03 Sodium Chloride 0.9% 10 Ml Flush Syringe IV 10 ml BID BELA Administration Sodium Chloride 10 ml 01/10/21 22:21 Sodium Chloride 0.9% 10 Ml Flush Syringe IV PRN PRN LINE FLUSH
--- NOTE | 2021-01-14 11:25 | Progress Note ---
Assessment and Plan Assessment and plan: Assessment and plan #Left hydronephrosis/solitary kidney Status post percutaneous left nephrostomy tube placement IR and vascular following for stent management #Acute on chronic kidney disease ATN Nephrology note reviewed Baseline serum creatinine is around 2 Serum creatinine trending down from 13-11 > 9.2> 6.5 >4.9 Continue management per nephrology recommendations #Metabolic acidosis Improving Today's lab results reviewed #UTI - sepsis ruled out Continue ceftriaxone Urine culture uojgofz-[id number]-uftext skin antione Blood cultures-no growth in 24 hours #Left kidney stone Urology note reviewed For outpatient lithotripsy #Hypertensive urgency Blood pressure is poorly controlled Continue amlodipine to 10 mg Increase hydralazine 50, 3 times daily Likely secondary to IV fluids Await follow-up by nephrology #Hyperglycemia Accu-Cheks reviewed A1c 5.9 #PCM-moderate Serum albumin 2.7 #Acute metabolic encephalopathy Resolved. DVT prophylaxis-Heparin subcu History Interval history: 75-year-old female sent by her urologist for decreased urine output and left lower quadrant severe intermittent pain. Patient apparently has a left renal/ureteral stone with hydronephrosis. Patient had ultrasound in the urology office and was told that she has a kidney stone and hydronephrosis. Patient is sent to the emergency room for evaluation of her left kidney stone and hydronephrosis. Patient has been having severe intermittent pain in the left lower quadrant for the last 3 days. Nausea present. No vomiting. No fever or chills. No hematuria. Decreased urine output. In the emergency room patient was found to have a creatinine of 13. Patient being taken to the Flasher Adjuster for possible nephrostomy on the left side 01/11 patient is alert and oriented. Not in any distress and offers no specific complaints except mild discomfort in the left mid back She denies any fever or chills. Denies chest pain or shortness of breath . lab results reviewed. Nephrology, vascular and urology notes reviewed 01/12 patient is awake and alert, ? Confused. She wants to know why she is in the hospital when she has a technician anatomic pathology, cabinetmaker supervisor and primary care physician whom she follows with. Not in any distress and she offers no specific complaints. She wants to know when the tube (PCN) can be taken out All questions were answered patiently. Will reorder restraints as the patient keeps looking at the extension of the PCN tube by the side of her bed to prevent from the tube getting dislodged. Vascular surgeons note reviewed. Patient denies any fever or chills or chest pain or shortness of breath. Lab results reviewed 01/13 patient appears much more alert and oriented today and a lot less confused. She has been off wrist restraints. She offers no specific complaints. She denies any fever or chills or chest pain or shortness of breath. Lab results reviewed. Vascular and nephrology notes reviewed 01/14. She has no complaints. Nephrostomy tube management as per IR. Continue to monitor renal function. Renal function continues to improve. Cr 4.9 today. Hospitalist Physical - Physical exam Narrative exam: VITAL SIGNS: Reviewed. GENERAL: Awake HEAD: No signs of head trauma. EYES: Pupils are equal. Extraocular motions intact. MOUTH: Oropharynx is normal. NECK: No adenopathy, no JVD. CHEST: Chest with diminished breath sounds bilaterally. No wheezes, rales, or rhonchi. CARDIAC: normal S1 and S2, without murmurs, gallops, or rubs. ABDOMEN: Soft, non tender and non distended. No rebound or guarding, and no masses palpated. Bowel Sounds normal. : Left nephrostomy tube intact MUSCULOSKELETAL: No edema NEUROLOGIC EXAM: Alert and oriented x3. No focal neurologic deficits SKIN: No obvious lesions - Constitutional Vitals: Temp Pulse Resp BP Pulse Ox 99.1 F 63 16 177/61 98 01/14/21 09:25 01/14/21 09:25 01/14/21 09:25 01/14/21 09:25 01/14/21 09:25 Results - Labs CBC & Chem 7: 01/12/21 05:01 01/14/21 05:02 Labs: Laboratory Last Values WBC 10.6 K/mm3 (4.5-11.0) 01/12/21 05:01 RBC 3.86 M/mm3 (3.65-5.03) 01/12/21 05:01 Hgb 11.3 gm/dl (10.1-14.3) 01/12/21 05:01 Hct 34.3 % (30.3-42.9) 01/12/21 05:01 MCV 89 fl (79-97) 01/12/21 05:01 MCH 29 pg (28-32) 01/12/21 05:01 MCHC 33 % (30-34) 01/12/21 05:01 RDW 13.1 % (13.2-15.2) L 01/12/21 05:01 Plt Count 343 K/mm3 (140-440) 01/12/21 05:01 Lymph % (Auto) 13.5 % (13.4-35.0) 01/11/21 04:42 [place] % (Auto) 6.3 % (0.0-7.3) 01/11/21 04:42 Eos % (Auto) 1.0 % (0.0-4.3) 01/11/21 04:42 Baso % (Auto) 0.4 % (0.0-1.8) 01/11/21 04:42 Lymph # (Auto) 1.2 K/mm3 (1.2-5.4) 01/11/21 04:42 [place] # (Auto) 0.5 K/mm3 (0.0-0.8) 01/11/21 04:42 Eos # (Auto) 0.1 K/mm3 (0.0-0.4) 01/11/21 04:42 Baso # (Auto) 0.0 K/mm3 (0.0-0.1) 01/11/21 04:42 Seg Neutrophils % 78.8 % (40.0-70.0) H 01/11/21 04:42 Seg Neutrophils # 6.7 K/mm3 (1.8-7.7) 01/11/21 04:42 PT 15.0 Sec. (12.2-14.9) H 01/10/21 11:25 INR 1.20 (0.87-1.13) H 01/10/21 11:25 APTT 30.5 Sec. (24.2-36.6) 01/10/21 11:25 Sodium 139 mmol/L (137-145) 01/14/21 05:02 Potassium 3.7 mmol/L (3.6-5.0) 01/14/21 05:02 Chloride 103.6 mmol/L (98-107) 01/14/21 05:02 Carbon Dioxide 17 mmol/L (22-30) L 01/14/21 05:02 Anion Gap 22 mmol/L 01/14/21 05:02 BUN 63 mg/dL (7-17) H 01/14/21 05:02 Creatinine 4.9 mg/dL (0.6-1.2) H 01/14/21 05:02 Estimated GFR 9 ml/min 01/14/21 05:02 BUN/Creatinine Ratio 13 % 01/14/21 05:02 Glucose 96 mg/dL (65-100) 01/14/21 05:02 POC Glucose 148 mg/dL (70-105) H 01/14/21 11:15 Hemoglobin A1c 5.9 % (4-6) 01/11/21 04:42 Lactic Acid 1.00 mmol/L (0.7-2.0) 01/10/21 12:48 Calcium 7.8 mg/dL (8.4-10.2) L 01/14/21 05:02 Total Bilirubin 0.20 mg/dL (0.1-1.2) 01/11/21 04:42 AST 9 units/L (5-40) 01/11/21 04:42 ALT < 5 units/L (7-56) L 01/11/21 04:42 Alkaline Phosphatase 115 units/L (35-129) 01/11/21 04:42 Total Protein 5.5 g/dL (6.3-8.2) L D 01/11/21 04:42 Albumin 2.7 g/dL (3.9-5) L 01/11/21 04:42 Albumin/Globulin Ratio 1.0 % 01/11/21 04:42 Urine Color Yellow (Yellow) 01/10/21 14:24 Urine Turbidity Cloudy (Clear) 01/10/21 14:24 Urine pH 5.0 (5.0-7.0) 01/10/21 14:24 Ur Specific [place] 1.008 (1.003-1.030) 01/10/21 14:24 Urine Protein 30 mg/dl mg/dL (Negative) 01/10/21 14:24 Urine Glucose (UA) Neg mg/dL (Negative) 01/10/21 14:24 Urine Ketones Neg mg/dL (Negative) 01/10/21 14:24 Urine Blood Mod (Negative) 01/10/21 14:24 Urine Nitrite Neg (Negative) 01/10/21 14:24 Urine Bilirubin Neg (Negative) 01/10/21 14:24 Urine Urobilinogen < 2.0 mg/dL (<2.0) 01/10/21 14:24 Ur Leukocyte Esterase Sm (Negative) 01/10/21 14:24 Urine WBC (Auto) 42.0 /HPF (0.0-6.0) H 01/10/21 14:24 Urine RBC (Auto) 6.0 /HPF (0.0-6.0) 01/10/21 14:24 U Epithel Cells (Auto) 64.0 /HPF (0-13.0) H 01/10/21 14:24 Urine Bacteria (Auto) 3+ /HPF (Negative) 01/10/21 14:24 Urine Mucus Few /HPF 01/10/21 14:24 Urine Yeast (Budding) 2+ /HPF 01/10/21 14:24 Blood Type O NEGATIVE 01/10/21 11:44 Antibody Screen Negative 01/10/21 11:44 Microbiology: Microbiology 01/10/21 12:48 Peripheral/Venous Blood Culture - Preliminary NO GROWTH AFTER 72 HOURS 01/10/21 12:48 Peripheral/Venous Blood Culture - Preliminary NO GROWTH AFTER 72 HOURS Rice/IV: Voiding Method Nephrostomy (Left) Active Medications - Current Medications Current Medications: Generic Name Dose Route Start Last Admin Trade Name Freq PRN Reason Stop Dose Admin Acetaminophen 650 mg 01/10/21 22:21 01/13/21 00:32 Acetaminophen 325 Mg Tab PO 650 mg Q4H PRN Administration Pain MILD(1-3)/Fever >100.5/RICH Amlodipine Besylate 10 mg 01/13/21 10:00 01/14/21 09:03 Amlodipine 10 Mg Tab PO 10 mg QDAY BELA Administration Famotidine 10 mg 01/11/21 10:00 01/14/21 09:03 Famotidine 10 Mg Tab PO 10 mg BID BELA Administration Fentanyl 50 mcg 01/14/21 09:12 Fentanyl 100 Mcg/2 Ml Inj IV 01/14/21 23:00 Q5MIN PRN Pain , Severe (7-10) Heparin Sodium (Porcine) 5,000 unit 01/11/21 10:00 01/14/21 09:05 Heparin 5,000 Unit/1 Ml Vial SUB-Q Not Given Q12HR [facility] Hydralazine HCl 50 mg 01/13/21 08:00 05/10/21 09:03 Hydralazine 25 Mg Tab PO 50 mg Q8H BELA Administration Ceftriaxone Sodium 1 gm in 50 mls @ 100 mls/hr 01/11/21 10:00 01/14/21 10:08 Rocephin/Ns 1 Gm/50 Ml IV 100 mls/hr Q24H BELA Administration Protocol Sodium Chloride 1,000 mls @ 75 mls/hr 01/14/21 09:15 01/14/21 09:55 Nacl 0.9% 1000 Ml IV 75 mls/hr DIRECT BELA Administration Insulin Human Lispro 0 unit 01/13/21 22:10 01/14/21 08:15 Insulin Lispro 100 Unit/Ml SUB-Q Not Given ACHS BELA Protocol Ondansetron HCl 4 mg 01/10/21 22:21 Ondansetron 4 Mg/2 Ml Inj IV Q3H PRN Nausea And Vomiting Sodium Chloride 10 ml 01/10/21 23:00 01/14/21 09:03 Sodium Chloride 0.9% 10 Ml Flush Syringe IV 10 ml BID BELA Administration Sodium Chloride 10 ml 01/10/21 22:21 Sodium Chloride 0.9% 10 Ml Flush Syringe IV PRN PRN LINE FLUSH Nutrition/Malnutrition Assess - Dietary Evaluation Nutrition/Malnutrition Findings: Nutrition Notes Start: 01/11/21 10:25 Freq: Status: Active Protocol: Document 01/11/21 10:25 AT (Rec: 01/11/21 10:27 AT [id number]) Co-Sign 01/11/21 10:25 CW Nutrition Notes Need for Assessment generated from: glove cutter,MST,Education Initial or Follow up Assessment Current Diagnosis Acute Kidney Injury,Diabetes Other Pertinent Diagnosis Left Renal/Uretral Stone with Hydronephrosis, SIRS Current Diet Renal Diet Labs/Tests Na 131 BUN 81 Cr 11.7 BG 165 A1c 5.9% Ca 7.6 Pertinent Medications Zofran NS at 75 mL/hr Height 5 ft 1 in Weight 63.9 kg Usual Body Weight 60.68 kg [place] Body Weight (kg) 47.72 BMI 26.6 Intake Prior to Admission Fair Weight Status Appropriate Subjective/Other Information Screen for malnutrition. Visited pt at bedside and did not observe physical signs of malnutrition. Pt is at nutritional risk, as she reports consuming less than 20 % of meals and was NPO since last Thursday (7 days) due to symptoms. Pt states that she is passing normal amounts of urine. 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 Pt has had DM for 20 years and manages it appropriately. Pt was receptive to diet education and suggestions on improving health. Academic Affairs Specialist recommended outpatient dietitian for meal planning needs. Pt is not interested in trying ONS. Percent of energy/protein needs met: 30%/24% Burn Absent Trauma Absent GI Symptoms Nausea Food Allergy No Usual Diet at Home 1-2 meals/day; fast food salads Current % PO Negligible Minimum of two criteria No Energy Intake (non-severe) <75% Estimated Energy Requirement >7 days #1 Nutrition Diagnosis Inadequate oral intake Etiology SIRS, Renal stone As Evidenced by Signs and Symptoms meeting 30% EER and 24% of protein needs Is patient on ventilator? No Is Patient Ambulatory and/or Out of Bed Yes REE-([place]-St. Jeor-ambulatory/OOB) [ 1399.294 NUTR.[id number]] Calculation [facility] Additional Notes PRO needs: 64-77g (1-1.2g/kg) Fluid needs: 1 mL/kcal or per MD Nutrition Intervention Change Diet Order: Continue current Teaching Recipient Patient Learning Readiness Good Teaching Methods Discussion,Handout Response to Teaching Verbalize understanding Education Handouts Provided Nutrition Therapy for Renal Stones and Carbohydrate Counting Barriers to Learning No Barriers RD phone number provided Yes Patient aware of follow up options Yes Goal #1 Meet at least 75% of estimated energy and protein needs via diet and ONS Goal #2 Adherence to Renal and Consistent CHO diets Goal #3 Weight maintenance Anticipated Discharge Needs: Renal/Consistent CHO Follow-Up By: 01/15/21 Additional Comments F/U for stable intakes
--- NOTE | 2021-01-14 11:37 | Post Anesthesia Evaluation ---
- Post Anesthesia Evaluation Patient Participated: Yes Airway Patent: Yes Stable Respiratory Function: Yes Nausea/Vomiting: No Temp > 96.8F: Yes Pain Manageable: Yes Adequeate Hydration: Yes Anesthesia Complications: No
--- NOTE | 2021-01-14 12:02 | Post Operative Note ---
Date of procedure: 01/07/21 Pre-op diagnosis: upj stone Post-op diagnosis: same Findings: severe obst Anesthesia: GETA Surgeon: MADDIE INGRAM Estimated blood loss: none Pathology: list (urine) Specimen disposition: to lab Condition: stable Disposition: PACU
--- NOTE | 2021-01-14 14:24 | Operative Report ---
DATE OF SURGERY: 01/14/2021 PREOPERATIVE DIAGNOSES: Left ureteral obstruction, hydronephrosis, sepsis, renal failure, solitary functioning kidney. POSTOPERATIVE DIAGNOSES: Left ureteral obstruction, hydronephrosis, sepsis, renal failure, solitary functioning kidney. PROCEDURE PERFORMED: Cystoscopy, left retrograde, left double-J stent, drainage of a pyonephrotic kidney. SURGEON: Dr. Kiser. ANESTHESIA: General. FINDINGS: This is a woman who presented twice last week and eventually had a percutaneous nephrostomy. It came out, was not draining yesterday, creatinine was 13, down to 4.9. She felt better this morning. She has this UPJ stone, tube is not draining. She now presents for treatment. I have spoken to ____ and we will try to get the stent up. DESCRIPTION OF PROCEDURE: The patient was brought to the operating room and placed on the operating table. Following induction of anesthesia, placed in lithotomy position, prepped and draped in usual sterile fashion. Retrograde showed severe obstruction. We were able to get a Glidewire by and the open-ended stent got by and purulent material was obtained from the left renal pelvis. The nephrostomy tube was not in place. Once we drained the kidney, a wire coiled and then we placed a 7 double-J coiled in the kidney and bladder, 22 cm without the string. The patient tolerated the procedure well and nephrostomy was removed under fluoroscopy. Rice was placed. Family notified, brought to recovery room in guarded condition. TID: [id number] RECEIPT: [id number] DANILO/KENNETH/ERNIE
--- NOTE | 2021-01-14 14:39 | Fluoroscopy Report ---
4 fluoroscopic images submitted Indication: Intraoperative localization Impression: 4 images of the left abdomen were submitted for documentation purposes with radiology in volvement. Patient underwent left-sided retrograde pyelogram with stent placement. Approximately 8 m L of Omnipaque 300 was utilized. Please refer to the operative note for complete details. Fluoroscopic time: 58 seconds Signer Name: Magen Newton MD Signed: 01/14/2021 2:34 PM Workstation Name: [id number]
[2021-01-14] MEDS: ACETAMINOPHEN 325 MG TAB PO PRN (15:29)
[2021-01-15] MEDS: ACETAMINOPHEN 325 MG TAB PO PRN ×2 (00:39→12:57)
[2021-01-15] MEDS: hydrALAZINE 25 MG TAB PO SCH ×3 (00:45→09:40)
[2021-01-15] MEDS: INSULIN LISPRO 100 UNIT/ML SUB-Q SCH ×2 (08:00→12:09)
--- NOTE | 2021-01-15 09:24 | Progress Note ---
Assessment and Plan recheck labs feliz can come out need antibiotis f/u litho Subjective Date of service: 01/15/21 Principal diagnosis: left hydro sepsis renal failure Objective - Constitutional Vitals: Vital Signs - 12hr 01/14/21 01/14/21 01/15/21 22:00 23:33 00:45 Temperature 97.8 F Pulse Rate 70 70 Pulse Rate [ 70 Apical] Respiratory 18 18 Rate Blood Pressure 142/50 142/50 O2 Sat by Pulse 98 95 Oximetry 01/15/21 01/15/21 01/15/21 03:41 05:00 07:50 Temperature 97.9 F 97.8 F Pulse Rate 66 66 70 Pulse Rate [ Apical] Respiratory 14 18 Rate Blood Pressure 141/44 158/52 O2 Sat by Pulse 97 97 Oximetry General appearance: Present: no acute distress Extremities: no ischemia - Gastrointestinal General gastrointestinal: Present: non-tender - Labs CBC & Chem 7: 01/12/21 05:01 01/14/21 05:02 Labs: Abnormal lab results 01/14/21 01/14/21 01/14/21 Range/Units 08:06 10:00 11:15 POC Glucose 133 H 133 H 148 H (70-105) mg/dL 01/14/21 01/14/21 01/15/21 Range/Units 16:22 20:37 07:48 POC Glucose 218 H 266 H 160 H (70-105) mg/dL Medications & Allergies - Medications Allergies/Adverse Reactions: Allergies Penicillins Allergy (Verified 01/10/21 11:04) Anaphylaxis Sulfa (Sulfonamide Antibiotics) Allergy (Verified 01/10/21 11:04) Anaphylaxis Home Medications: Home Medications Medication Instructions Recorded Confirmed Last Taken Type Colesevelam [Welchol] 625 tab PO QID 01/14/21 01/14/21 01/09/21 History 625 Estradiol 1 mg PO QAM 01/14/21 01/14/21 01/09/21 08:00 History 1 mg ISOSORBIDE MONOnitrate [Imdur ER] 30 mg PO DAILY 01/14/21 01/14/21 01/09/21 History Lantus Solostar 10 units SQ QAM 01/14/21 01/14/21 01/09/21 08:00 History Levothyroxine [Synthroid] 75 mcg PO QAM 0501/14/21 01/09/21 08:00 History Losartan [Cozaar] 25 mg PO QAM 01/14/21 01/14/21 01/09/21 08:00 History 25 mg NIFEdipine [Nifedipine ER] 60 mg PO DAILY 01/14/21 01/14/21 01/09/21 20:00 History 60 mg NIFEdipine [Nifedipine ER] 60 mg PO QHS 01/14/21 01/14/21 01/09/21 20:00 History 60 mg Nebivolol HCl [Bystolic] 1 tab PO DAILY 01/14/21 01/14/21 01/09/21 20:00 History 1 Nebivolol HCl [Bystolic] 1 tab PO DAILY 01/14/21 01/14/21 01/09/21 20:00 History 625 mg Vitamin D3 25 mg PO DAILY 01/14/21 01/14/21 01/09/21 08:00 History 1 Active Medications: Generic Name Dose Route Start Last Admin Trade Name Freq PRN Reason Stop Dose Admin Acetaminophen 650 mg 01/10/21 22:21 01/15/21 00:39 Acetaminophen 325 Mg Tab PO 650 mg Q4H PRN Administration Pain MILD(1-3)/Fever >100.5/RICH Amlodipine Besylate 10 mg 01/13/21 10:00 01/14/21 09:03 Amlodipine 10 Mg Tab PO 10 mg QDAY BELA Administration Famotidine 10 mg 01/11/21 10:00 01/14/21 22:04 Famotidine 10 Mg Tab PO 10 mg BID BELA Administration Heparin Sodium (Porcine) 5,000 unit 01/11/21 10:00 01/14/21 22:04 Heparin 5,000 Unit/1 Ml Vial SUB-Q 5,000 unit Q12HR BELA Administration Hydralazine HCl 50 mg 01/13/21 08:00 01/15/21 00:45 Hydralazine 25 Mg Tab PO 50 mg Q8H BELA Administration Ceftriaxone Sodium 1 gm in 50 mls @ 100 mls/hr 01/11/21 10:00 01/14/21 10:08 Rocephin/Ns 1 Gm/50 Ml IV 100 mls/hr Q24H BELA Administration Protocol Sodium Chloride 1,000 mls @ 75 mls/hr 01/14/21 09:15 01/14/21 09:55 Nacl 0.9% 1000 Ml IV 75 mls/hr DIRECT BELA Administration Insulin Human Lispro 0 unit 01/13/21 22:10 01/14/21 22:06 Insulin Lispro 100 Unit/Ml SUB-Q 4 unit ACHS BELA Administration Protocol Ondansetron HCl 4 mg 01/10/21 22:21 Ondansetron 4 Mg/2 Ml Inj IV Q3H PRN Nausea And Vomiting Sodium Chloride 10 ml 01/10/21 23:00 01/14/21 22:07 Sodium Chloride 0.9% 10 Ml Flush Syringe IV 10 ml BID BELA Administration Sodium Chloride 10 ml 01/10/21 22:21 Sodium Chloride 0.9% 10 Ml Flush Syringe IV PRN PRN LINE FLUSH
[2021-01-15] MEDS: FAMOTIDINE 10 MG TAB PO SCH (09:35)
[2021-01-15] MEDS: amLODIPine 10 MG TAB PO SCH (09:35)
[2021-01-15] MEDS: HEPARIN 5,000 UNIT/1 ML VIAL SUB-Q SCH (09:36)
[2021-01-15] MEDS: cefTRIAXone/NS 1 GM/50 ML 1 GM/50 ML BAG IV SCH (09:37)
[2021-01-15 09:55] LABS: Basophils % (Auto) 0.6 % (0.0-1.8); Eosinophils # (Auto) 0.1 K/mm3 (0.0-0.4); Eosinophils % (Auto) 2.5 % (0.0-4.3); Hematocrit 30.1 % (30.3-42.9); Lymphocytes # (Auto) 0.9 K/mm3 (1.2-5.4); Lymphocytes % (Auto) 18.2 % (13.4-35.0); Mean Corpuscular HGB Conc 33 % (30-34); Mean Corpuscular Volume 88 fl (79-97); Monocytes # (Auto) 0.3 K/mm3 (0.0-0.8); Monocytes % (Auto) 6.7 % (0.0-7.3); Platelet Count 313 K/mm3 (140-440); Red Blood Count 3.42 M/mm3 (3.65-5.03); Red Cell Distribution Width 13.4 % (13.2-15.2)
--- NOTE | 2021-01-15 10:23 | Progress Note ---
Assessment and Plan This is a 75 year old woman who presents with obstructive nephropathy, VADIM. # VADIM in CKD: severe VADIM with creatinine from 2.0->13 due to acute obstruction, s/p nephrostomy tube. Creatinine improving. - appreciate urology, IR input - daily labs - renally dose meds - avoid nephrotoxins - renal diet - no immediate indication for renal replacement therapy; high risk given severity of VADIM but showing recovery - strict Is/Os - no specific need to remain inpatient from nephrology perspective, will ensure close VADIM/CKD follow up on discharge # Left Hydronephrosis/Solitary Kidney: outpatient lithotripsy, [facility]olink as outpatient if not previously done for medical stone management # UTI: on ceftriaxone, urine culture reviewed # Acidosis: likely due to VADIM, improving with supportive measures. HCO3 improving to 19 # Hypoalbuminemia: likely related to poor nutrition + infectious state # Anemia: Hgb 10. Monitor # HTN: Continue antihypertensives, may need further titration. Monitor trend with further titration as needed. Subjective Date of service: 01/15/21 Principal diagnosis: left hydro sepsis renal failure Objective - Vital Signs Vital signs: Vital Signs - 12hr 01/14/21 01/15/21 01/15/21 23:33 00:45 03:41 Temperature 97.8 F 97.9 F Pulse Rate 70 70 66 Respiratory 18 14 Rate Blood Pressure 142/50 142/50 141/44 O2 Sat by Pulse 95 97 Oximetry 01/15/21 01/15/21 01/15/21 05:00 07:50 08:00 Temperature 97.8 F Pulse Rate 66 70 70 Respiratory 18 Rate Blood Pressure 158/52 158/70 O2 Sat by Pulse 97 Oximetry 01/15/21 01/15/21 09:35 09:40 Temperature Pulse Rate 70 70 Respiratory Rate Blood Pressure 158/70 158/78 O2 Sat by Pulse Oximetry - Lab 01/15/21 09:15 01/15/21 09:15 Most recent lab results Calcium 7.0 mg/dL (8.4-10.2) L 01/15/21 09:15 Medications & Allergies - Medications Allergies/Adverse Reactions: Allergies Penicillins Allergy (Verified 01/10/21 11:04) Anaphylaxis Sulfa (Sulfonamide Antibiotics) Allergy (Verified 01/10/21 11:04) Anaphylaxis Home Medications: Home Medications Medication Instructions Recorded Confirmed Last Taken Type Colesevelam [Welchol] 625 tab PO QID 01/14/21 01/14/21 01/09/21 History 625 Estradiol 1 mg PO QAM 01/14/21 01/14/21 01/09/21 08:00 History 1 mg ISOSORBIDE MONOnitrate [Imdur ER] 30 mg PO DAILY 01/14/21 01/14/21 01/09/21 History Lantus Solostar 10 units SQ QAM 01/14/21 01/14/21 01/09/21 08:00 History Levothyroxine [Synthroid] 75 mcg PO QAM 01/14/21 01/14/21 01/09/21 08:00 History Losartan [Cozaar] 25 mg PO QAM 01/14/21 01/14/21 01/09/21 08:00 History 25 mg NIFEdipine [Nifedipine ER] 60 mg PO DAILY 01/14/21 01/14/21 01/09/21 20:00 History 60 mg NIFEdipine [Nifedipine ER] 60 mg PO QHS 01/14/21 01/14/21 01/09/21 20:00 History 60 mg Nebivolol HCl [Bystolic] 1 tab PO DAILY 01/14/21 01/14/21 01/09/21 20:00 History 1 Nebivolol HCl [Bystolic] 1 tab PO DAILY 01/14/21 01/14/21 01/09/21 20:00 History 625 mg Vitamin D3 25 mg PO DAILY 01/14/21 01/14/21 01/09/21 08:00 History 1 Active Medications: Generic Name Dose Route Start Last Admin Trade Name Freq PRN Reason Stop Dose Admin Acetaminophen 650 mg 01/10/21 22:21 01/15/21 00:39 Acetaminophen 325 Mg Tab PO 650 mg Q4H PRN Administration Pain MILD(1-3)/Fever >100.5/RICH Amlodipine Besylate 10 mg 01/13/21 10:00 01/15/21 09:35 Amlodipine 10 Mg Tab PO 10 mg QDAY BELA Administration Famotidine 10 mg 01/11/21 10:00 01/15/21 09:35 Famotidine 10 Mg Tab PO 10 mg BID BELA Administration Heparin Sodium (Porcine) 5,000 unit 01/11/21 10:00 01/15/21 09:36 Heparin 5,000 Unit/1 Ml Vial SUB-Q 5,000 unit Q12HR BELA Administration Hydralazine HCl 50 mg 01/13/21 08:00 01/15/21 09:40 Hydralazine 25 Mg Tab PO 50 mg Q8H BELA Administration Ceftriaxone Sodium 1 gm in 50 mls @ 100 mls/hr 01/11/21 10:00 01/15/21 09:37 Rocephin/Ns 1 Gm/50 Ml IV 100 mls/hr Q24H BELA Administration Protocol Sodium Chloride 1,000 mls @ 75 mls/hr 01/14/21 09:15 01/14/21 09:55 Nacl 0.9% 1000 Ml IV 75 mls/hr DIRECT BELA Administration Insulin Human Lispro 0 unit 01/13/21 22:10 01/15/21 08:00 Insulin Lispro 100 Unit/Ml SUB-Q 2 unit ACHS BELA Administration Protocol Ondansetron HCl 4 mg 01/10/21 22:21 Ondansetron 4 Mg/2 Ml Inj IV Q3H PRN Nausea And Vomiting Sodium Chloride 10 ml 01/10/21 23:00 01/15/21 09:37 Sodium Chloride 0.9% 10 Ml Flush Syringe IV 10 ml BID BELA Administration Sodium Chloride 10 ml 01/10/21 22:21 Sodium Chloride 0.9% 10 Ml Flush Syringe IV PRN PRN LINE FLUSH
[2021-01-15 12:52] VITALS: BP 128/52
--- NOTE | 2021-01-15 13:29 | Post Anesthesia Evaluation ---
- Post Anesthesia Evaluation Patient Participated: Yes Airway Patent: Yes Stable Respiratory Function: Yes Nausea/Vomiting: No Temp > 96.8F: Yes Pain Manageable: Yes Adequeate Hydration: Yes Anesthesia Complications: No Block Receding Appropriately: Not Applicable Patient on Ventilator: No
--- NOTE | 2021-01-15 14:24 | Discharge Summary ---
Providers - Providers Date of Admission: 01/10/21 13:05 Date of discharge: 01/15/21 Attending physician: NADIA SOW 01/10/21 12:43 Consult to Physician [CONS] Stat Comment: Consulting Provider: VARGHESE KUMARI Physician Instructions: Reason For Exam: Acute on chronic renal failure 01/10/21 12:50 Consult to Physician [CONS] Stat Comment: Consulting Provider: CLAU LARIOS Physician Instructions: Reason For Exam: Hydronephrosis needs nephrostomy 01/10/21 12:51 Consult to Physician [CONS] Stat Comment: Consulting Provider: MADDIE INGRAM Physician Instructions: Reason For Exam: 7 mm stone with hydro-, possible infection Primary care physician: PIPE SUPERVISOR Hospitalization Condition: Stable Hospital course: 75-year-old female sent by her urologist on 01/10/21 for decreased urine output and left lower quadrant severe intermittent pain. Patient apparently has a left renal/ureteral stone with hydronephrosis. Patient had ultrasound in the urology office and was told that she has a kidney stone and hydronephrosis. Patient was sent to the emergency room for evaluation of her left kidney stone and hydronephrosis. In the emergency room patient was found to have a creatinine of 13. Patient was admitted to the hospital for further evaluation management and taken to the Grease Renderer with s/p nephrostomy on the left side. Daily clinical course: 01/11 patient is alert and oriented. Not in any distress and offers no specific complaints except mild discomfort in the left mid back She denies any fever or chills. Denies chest pain or shortness of breath . lab results reviewed. Nephrology, vascular and urology notes reviewed 01/12 patient is awake and alert, ? Confused. She wants to know why she is in the hospital when she has a metal bonding assembler, funding specialist and primary care physician whom she follows with. Not in any distress and she offers no specific complaints. She wants to know when the tube (PCN) can be taken out All questions were answered patiently. Will reorder restraints as the patient keeps looking at the extension of the PCN tube by the side of her bed to prevent from the tube getting dislodged. Vascular surgeons note reviewed. Patient denies any fever or chills or chest pain or shortness of breath. Lab results reviewed 01/13 patient appears much more alert and oriented today and a lot less confused. She has been off wrist restraints. She offers no specific complaints. She denies any fever or chills or chest pain or shortness of breath. Lab results reviewed. Vascular and nephrology notes reviewed 01/14. She has no complaints. Patient successfully had cystoscopic stent placement and nephrostomy tube was removed today by Urologist. Continue to monitor renal function. Renal function continues to improve. Cr 4.9 today. 01/15: Creatinine 3.5 today with potassium 3.2. Per nephrology neurologist patient will be discharged home with antibiotics and outpatient follow-up. Patient mental status is stable, she is alert awake and oriented x3. Patient will need to follow-up with urologist for outpatient lithotripsy and also need t o follow-up with metal bonding assembler for outpatient renal function monitoring. Given prescription to replete potassium as outpatient and recommended repeat BMP in 1 week.. discharge planning management was thoroughly discussed with the patient and she verbalized understanding. Disposition: DC- TO HOME OR SELFCARE Final Discharge Diagnosis (Prints w/discharge instructions): Left hydronephrosis/solitary kidney -s/p cystoscopic stent placement. Acute on chronic kidney disease secondary to obstructive nephropathy. Metabolic acidosis. UTI. Left kidney stone need lithotripsy as outpatient. Hypertensive urgency. PCM-moderate. Acute delirium, likely from medications -resolved. Hypothyroidism. Hypokalemia Time spent for discharge: 40 minutes Core Measure Documentation - Palliative Care Palliative Care/ Comfort Measures: Not Applicable - Core Measures Any of the following diagnoses?: none Exam - Physical Exam Narrative exam: VITAL SIGNS: Reviewed. GENERAL: Awake HEAD: No signs of head trauma. EYES: Pupils are equal. Extraocular motions intact. MOUTH: Oropharynx is normal. NECK: No adenopathy, no JVD. CHEST: Chest with diminished breath sounds bilaterally. No wheezes, rales, or rhonchi. CARDIAC: normal S1 and S2, without murmurs, gallops, or rubs. ABDOMEN: Soft, non tender and non distended. No rebound or guarding, and no masses palpated. Bowel Sounds normal. : Left nephrostomy tube intact MUSCULOSKELETAL: No edema NEUROLOGIC EXAM: Alert and oriented x3. No focal neurologic deficits SKIN: No obvious lesions - Constitutional Vitals: Temp Pulse Resp BP Pulse Ox 98.3 F 65 19 128/52 98 01/15/21 12:00 01/15/21 12:00 01/15/21 12:00 01/15/21 12:00 01/15/21 10:00 Plan Activity: advance as tolerated Weight Bearing Status: Weight Bear as Tolerated Diet: low salt Wound: per your surgeon's advice Additional Instructions: Follow-up with urologist for outpatient lithotripsy. follow-up with metal bonding assembler for outpatient renal function monitoring. Repeat BMP in 1 week Follow up with: PRIMARY CAREMD [Primary Care Provider] - 3-5 Days MADDIE INGRAM MD [Staff Physician] - 7 Days JONES BABIN MD [Staff Physician] - 7 Days Prescriptions: amLODIPine 10 mg PO QDAY #30 tablet hydrALAZINE [Apresoline TAB] 50 mg PO Q8H #90 tablet Ciprofloxacin HCl [Ciprofloxacin TAB] 250 mg PO BID #14 tablet Potassium Chloride [K-Dur] 20 meq PO QDAY #3 tablet
== END 2021-01-15 15:35 | disposition home health service (06) | DRG 659 ==
LOC: ED 11:03 → 4A 13:05
PROVIDERS: ADMIT Internal Medicine; ATTEND Internal Medicine
PROC: 0T9130Z Drainage of Left Kidney with Drainage Device, Percutaneous Approach (ICD-10-PCS; principal; 2021-01-10)
PROC: BT121ZZ Fluoroscopy of Left Kidney using Low Osmolar Contrast (ICD-10-PCS; 2021-01-10)
PROC: 0T778DZ Dilation of Left Ureter with Intraluminal Device, Via Natural or Artificial Opening Endoscopic (ICD-10-PCS; 2021-01-14)
PROC: BT1F1ZZ Fluoroscopy of Left Kidney, Ureter and Bladder using Low Osmolar Contrast (ICD-10-PCS; 2021-01-14)
DX: N17.0 Acute kidney failure with tubular necrosis (principal); G93.41 Metabolic encephalopathy; N39.0 Urinary tract infection, site not specified; E87.1 Hypo-osmolality and hyponatremia; E44.0 Moderate protein-calorie malnutrition; E87.2 Acidosis; Q60.0 Renal agenesis, unilateral; R65.10 Systemic inflammatory response syndrome (SIRS) of non-infectious origin without acute organ dysfunction; N13.1 Hydronephrosis with ureteral stricture, not elsewhere classified; N18.5 Chronic kidney disease, stage 5; D64.9 Anemia, unspecified; E88.09 Other disorders of plasma-protein metabolism, not elsewhere classified; I12.9 Hypertensive chronic kidney disease with stage 1 through stage 4 chronic kidney disease, or unspecified chronic kidney disease; I16.0 Hypertensive urgency; E11.65 Type 2 diabetes mellitus with hyperglycemia; E11.22 Type 2 diabetes mellitus with diabetic chronic kidney disease; D72.829 Elevated white blood cell count, unspecified; Z88.0 Allergy status to penicillin; Z88.2 Allergy status to sulfonamides; Z79.899 Other long term (current) drug therapy; Z79.891 Long term (current) use of opiate analgesic; Z79.01 Long term (current) use of anticoagulants
CPT/HCPCS: 36415; 50432; 71045; 74018; 74176; 74420; 80048; 80053; 81001; 82140; 82962; 83036; 85025; 85027; 85610; 85730; 86850; 86900; 86901; 87040; 87086; 93005; 96365; G0378; C1729; C1758; C1769; C2617; J0696; J1170; J1644; J1815; J1956; J2175; J2250; J3010; J7030; J7040; Q9967

== ENCOUNTER 2021-01-24 11:55 | Day surgery (SDC) | payer MEDICARE ==
[2021-01-18 12:45] LABS: Hematocrit 29.8 % (30.3-42.9); Hemoglobin 10.3 gm/dl (10.1-14.3); Mean Corpuscular HGB Conc 35 % (30-34); Mean Corpuscular Volume 88 fl (79-97); Platelet Count 414 K/mm3 (140-440); Red Blood Count 3.38 M/mm3 (3.65-5.03); Red Cell Distribution Width 13.5 % (13.2-15.2)
[2021-01-18 13:27] LABS: Calcium 7.8 mg/dL (8.4-10.2)
--- NOTE | 2021-01-24 12:07 | Anesthesia Day of Surgery ---
Anesthesia Day of Surgery - Day of Surgery Patient Examined: Yes Patient H&P Reviewed: Yes Patient is NPO: Yes
--- NOTE | 2021-01-24 12:09 | Anesthesia Consultation ---
Anesthesia Consult and Med Hx - Airway Anesthetic Teeth Evaluation: Good ROM Head & Neck: Adequate Mental/Hyoid Distance: Adequate Mallampati Class: Class II Intubation Access Assessment: Good - Pre-Operative Health Status ASA Pre-Surgery Classification: ASA3 Proposed Anesthetic Plan: General - Pulmonary Hx Smoking: No Hx Asthma: No Hx Respiratory Symptoms: No COPD: No Hx Pneumonia: No Hx Sleep Apnea: No - Cardiovascular System Hx Hypertension: Yes Hx Heart Attack/AMI: No Hx Percutaneous Transluminal Coronary Angioplasty (PTCA): No Hx Cardia Arrhythmia: No Hx Pacemaker: No Hx Internal Defibrillator: No Hx Valvular Heart Disease: Yes (MVP) Hx Heart Murmur: No - Central Nervous System Hx Seizures: No CVA: No Hx Psychiatric Problems: No - Endocrine Hx Renal Disease: Yes (VADIM on CKD 2/2 obstruction; improving) Hx End Stage Renal Disease: No Hx Cirrhosis: No Hx Liver Disease: No Hx Insulin Dependent Diabetes: Yes Hx Thyroid Disease: No - Hematic Hx Anemia: Yes Hx Sickle Cell Disease: No - Other Systems Hx Alcohol Use: No Hx Substance Use: No Hx Cancer: No Hx Obesity: No - Additional Comments Anesthesia Medical History Comments: Was here [id number]
[2021-01-24] MEDS ORDERED: LACTATED RINGERS 1,000 ML IV SCH (12:30)
[2021-01-24] MEDS: MIDAZOLAM 2 MG/2 ML INJ IV PRN ×2 (12:50→13:14)
[2021-01-24] MEDS ORDERED: LIDOCAINE MPF (2%) 20 MG/1 ML VIAL 5 ML ONE (13:15)
[2021-01-24] MEDS ORDERED: HYDROmorphone 1 MG/1 ML INJ ONE (13:15)
[2021-01-24] MEDS ORDERED: propofoL 200 MG/20 ML VIAL IV ONE (13:16)
[2021-01-24] MEDS ORDERED: fentaNYL 100 MCG/2 ML INJ ONE (13:32)
--- NOTE | 2021-01-24 13:55 | Post Operative Note ---
Date of procedure: 01/24/21 Pre-op diagnosis: r upj stone Post-op diagnosis: same Findings: as above Procedure: eswl Anesthesia: SWETHA Surgeon: MADDIE INGRAM Estimated blood loss: none Pathology: none Condition: stable Disposition: PACU
--- NOTE | 2021-01-24 13:56 | Discharge Summary ---
Short Stay Discharge Plan Activity: other (no straining ) Weight Bearing Status: Full Weight Bearing Diet: regular Special Instructions: other (inc fluids ) Durable Medical Equipment Needed Upon Discharge: other (pt has j stent ) Follow up with: KARINA MCKEON MD [Primary Care Provider] - 7 Days MADDIE INGRAM MD [Staff Physician] - 7 Days
[2021-01-24] MEDS ORDERED: ONDANSETRON 4 MG/2 ML INJ ONE (14:17)
--- NOTE | 2021-01-24 14:29 | Operative Report ---
DATE OF SURGERY: 01/24/2021 PREOPERATIVE DIAGNOSES: Previous sepsis, left ureteropelvic junction stone. POSTOPERATIVE DIAGNOSES: Previous sepsis, left ureteropelvic junction stone. PROCEDURE: Left ESWL. SURGEON: Gareth Kiser M.D. ANESTHESIA: General. FINDINGS: This is a woman with basically a solitary kidney, who presents for lithotripsy. She had a stone, which was transposed from the UPJ into the kidney with a double-J after the percutaneous nephrostomy fell out. She now presents for treatment. All risks and complications discussed. DESCRIPTION OF PROCEDURE: The patient was brought to the operating room and placed on the operating table. Following induction of anesthesia, placed in the supine position, prepped and draped in usual sterile fashion. The stone was well-visualized in both the AP and oblique image. The stone was easily seen and shocks were begun at 1 kV, increased to maximum of 7 kV. Excellent fragmentation was achieved. A total of 2500 shocks were given to the kidney. The patient tolerated the procedure well. No significant complication. It looks like the stone totally was disintegrated. She was brought to recovery in stable condition. TID: [id number] RECEIPT: [id number] DANILO/JULIA
[2021-01-24] MEDS ORDERED: hydrALAZINE 20 MG/1 ML INJ IV ONE ×2 (14:50→15:15)
[2021-01-24 16:17] VITALS: BP 130/51
== END 2021-01-24 16:00 | disposition home or self-care (01) ==
LOC: OR 11:55
PROVIDERS: ATTEND Urology
DX: N20.1 Calculus of ureter (principal); E11.65 Type 2 diabetes mellitus with hyperglycemia; E78.00 Pure hypercholesterolemia, unspecified; I10 Essential (primary) hypertension; K21.9 Gastro-esophageal reflux disease without esophagitis; M19.90 Unspecified osteoarthritis, unspecified site; D64.9 Anemia, unspecified; Z20.822 Contact with and (suspected) exposure to COVID-19; Z88.0 Allergy status to penicillin; Z88.2 Allergy status to sulfonamides; Z88.8 Allergy status to other drugs, medicaments and biological substances; Z79.899 Other long term (current) drug therapy; Z98.41 Cataract extraction status, right eye; Z98.42 Cataract extraction status, left eye; Z90.710 Acquired absence of both cervix and uterus; Z87.440 Personal history of urinary (tract) infections; Z98.890 Other specified postprocedural states
CPT/HCPCS: 36415; 50590; 80048; 82962; 85027; J0360; J1170; J1956; J2250; J2405; J2704; J3010; J7120; U0003

== ENCOUNTER 2021-02-20 11:33 | Day surgery (SDC) | payer MEDICARE ==
[2021-02-20] MEDS ORDERED: MIDAZOLAM 2 MG/2 ML INJ IV ONE (12:41)
[2021-02-20] MEDS ORDERED: LACTATED RINGERS 1,000 ML IV SCH (12:45)
[2021-02-20] MEDS ORDERED: LIDOCAINE MPF (2%) 20 MG/1 ML VIAL 5 ML ONE (13:21)
[2021-02-20] MEDS ORDERED: propofoL 200 MG/20 ML VIAL IV ONE (13:21)
[2021-02-20] MEDS ORDERED: MORPHINE 2 MG/1 ML INJ IV PRN (13:24)
[2021-02-20] MEDS ORDERED: ONDANSETRON 4 MG/2 ML INJ IV PRN (13:24)
[2021-02-20] MEDS ORDERED: fentaNYL 100 MCG/2 ML INJ IV PRN (13:24)
--- NOTE | 2021-02-20 13:24 | Anesthesia Day of Surgery ---
Anesthesia Day of Surgery - Day of Surgery Patient Examined: Yes Patient H&P Reviewed: Yes Patient is NPO: Yes
[2021-02-20] MEDS ORDERED: fentaNYL 100 MCG/2 ML INJ ONE (13:41)
[2021-02-20] MEDS ORDERED: ONDANSETRON 4 MG/2 ML INJ ONE (14:25)
[2021-02-20] MEDS ORDERED: dexAMETHasone 20 MG/5 ML VIAL ONE (14:25)
[2021-02-20] MEDS ORDERED: ePHEDrine SULFATE 50 MG/1 ML INJ ONE (14:29)
[2021-02-20] MEDS ORDERED: IOHEXOL 300 MG/ML 50ML IV ONE (14:30)
[2021-02-20] MEDS ORDERED: WATER FOR IRRIG STERILE 2000 ML IR ONE (14:31)
--- NOTE | 2021-02-20 15:03 | Post Operative Note ---
Date of procedure: 02/20/21 Pre-op diagnosis: left stones Post-op diagnosis: same Findings: as above Procedure: cysto l ureteroscopy Anesthesia: SWETHA Surgeon: MADDIE INGRAM Estimated blood loss: none Pathology: none Condition: stable Disposition: PACU
--- NOTE | 2021-02-20 15:04 | Discharge Summary ---
Short Stay Discharge Plan Activity: other (no straining ) Weight Bearing Status: Full Weight Bearing Diet: regular, low cholesterol Special Instructions: other (inc fluids ) Durable Medical Equipment Needed Upon Discharge: other (j stent do not pull string ) Follow up with: KARINA MCKEON MD [Primary Care Provider] - 7 Days MADDIE INGRAM MD [Staff Physician] - 02/25/21
--- NOTE | 2021-02-20 15:28 | Operative Report ---
DATE OF SURGERY: 02/20/2021 PREOPERATIVE DIAGNOSIS: Previous sepsis, post-lithotripsy fragments. POSTOPERATIVE DIAGNOSIS: Previous sepsis, post-lithotripsy fragments. PROCEDURES: Cystoscopy, left ureteroscopy and stent exchange, irrigation of fragments. SURGEON: Dr. Kiser. ANESTHESIA: General. FINDINGS: This is a woman who presented with sepsis. She had a large stone that was treated with lithotripsy and stenting. She now presents for a second stage look. DESCRIPTION OF PROCEDURE: The patient was brought to the operating room and placed on the operating table. Following induction of anesthesia, placed in lithotomy position, prepped and draped in the usual sterile fashion. Cystourethroscopy showed the stent which was exchanged with a wire. Flexible ureteroscopy went right up to the kidney. We saw some gravel in the ureter, which was washed out, was not seen on the way out. In the lower pole, there were some stones. We tried getting the fiber through the scope in the lower pole, it would not make the curve. We did not want to traumatize the kidney. These were small fragments. The patient tolerated the procedure well. We replaced the 6 Icelandic instead of the 7 Icelandic double J, left the string. Family notified and brought to recovery in stable condition. TID: [id number] RECEIPT: [id number] DANILO/GEORGE
--- NOTE | 2021-02-20 16:05 | Fluoroscopy Report ---
INTRAOPERATIVE FLUOROSCOPY: ABDOMEN INDICATION: HYDRONEPHROSIS WITH RENAL AND URETHRAL OBSTRUCTION. TECHNIQUE: Intraoperative spot images were obtained during the procedure. FINDINGS: Limited imaging demonstrates expected positioning of a left ureteral stent that was subsequently daphnie venkata for performance of ureteroscopy and stone removal. A subsequently placed left ureteral stent is i n good position. Please see the report for the procedure for further details. Fluoroscopy Time: 0.3 minutes. Fluoroscopy Images: 5. Signer Name: Genaro Morgan MD Signed: 02/20/2021 4:00 PM Workstation Name: [id number]
[2021-02-20 16:37] VITALS: BP 145/58
== END 2021-02-20 16:20 | disposition home or self-care (01) ==
LOC: OR 11:33
PROVIDERS: ATTEND Urology
DX: N13.2 Hydronephrosis with renal and ureteral calculous obstruction (principal); A41.89 Other specified sepsis; E11.65 Type 2 diabetes mellitus with hyperglycemia; E78.00 Pure hypercholesterolemia, unspecified; I10 Essential (primary) hypertension; K21.9 Gastro-esophageal reflux disease without esophagitis; M19.90 Unspecified osteoarthritis, unspecified site; E03.9 Hypothyroidism, unspecified; F41.9 Anxiety disorder, unspecified; Z88.0 Allergy status to penicillin; Z88.2 Allergy status to sulfonamides; Z88.8 Allergy status to other drugs, medicaments and biological substances; Z79.899 Other long term (current) drug therapy; Z98.41 Cataract extraction status, right eye; Z98.42 Cataract extraction status, left eye; Z90.710 Acquired absence of both cervix and uterus; Z87.440 Personal history of urinary (tract) infections; Z98.890 Other specified postprocedural states; Z86.2 Personal history of diseases of the blood and blood-forming organs and certain disorders involving the immune mechanism
CPT/HCPCS: 52332; 52351; 74420; 82962; A4217; C1758; C2617; J1100; J1956; J2250; J2405; J2704; J7120; Q9967; J3010